=== PATIENT | male | born 1960 | race Caucasian/White ===

== ENCOUNTER 2018-11-04 04:20 | Inpatient (IN) | payer BC ==
[~2018-11-04] VITALS: Ht 172.7 cm; Wt 83.3 kg
[2018-11-04] VITALS (27 sets, daily range): BP systolic 77–151; BP diastolic 47–87
--- NOTE | 2018-11-04 05:33 | Pulmonary Consultation ---
History of Present Illness History of Present Illness Date of Consultation 11/04/18 05:27 Time Seen by Provider: 05:28 Date of Admission History of Present Illness 58yo admitted to from [facility] secondary to worsening dyspnea. He had a recent hospitalization x 3days in [place], [place] 1month ago secondary to acute bronchitis. After discharge his SOB and productive cough has slowly worsened. He was placed on Lasix as an out pt after a echocardiogram which did help some. He was referred to Dr. Colon who did a cardiac cath on him at [place] and 3 stents were placed then a day later 3 more stents placed. After discharge SOB continues to worsen he went back to ED in [place] he was going to transfer to [place] however they were on Diversion so pt was transferred here. He denies any LE swelling. No c/o fever or chills. No c/o n/v/d. Allergies and Home Medications Allergies Coded Allergies: Penicillins (Verified Allergy, Unknown, 11/04/18) Home Medications Aspirin 81 Mg Tablet.dr, 81 MG PO DAILY, (Reported) Atorvastatin Calcium 80 Mg Tablet, 80 MG PO HS, (Reported) Carvedilol 12.5 Mg Tablet, 12.5 MG PO BID, (Reported) Furosemide 40 Mg Tablet, 40 MG PO DAILY, (Reported) Spironolactone 25 Mg Tablet, 25 MG PO DAILY, (Reported) Ticagrelor 90 Mg Tablet, 90 MG PO BID, (Reported) Past Nybjgzh-Soukid-Haubxa Hx Patient Social History Recent Foreign Travel: No Contact w/Someone Who Travel: No Review of Systems Time Seen by Provider: 10:56 Sepsis Event Evaluation Height, Weight, BMI Height: '" Weight: lbs. oz. kg; BMI Method: Exam Exam Vital Signs Date Time Temp Pulse Resp B/P (MAP) Pulse Ox O2 Delivery O2 Flow Rate FiO2 11/04/18 05:15 81 11 90/64 (73) 98 Nasal Cannula 2.00 11/04/18 05:00 78 16 99/76 (84) 98 Nasal Cannula 2.00 11/04/18 04:45 98 16 96/85 (89) 99 Nasal Cannula 2.00 11/04/18 04:30 96 21 101/77 (85) 100 Nasal Cannula 2.00 11/04/18 04:23 99 15 99/76 (84) 100 Nasal Cannula 2.00 11/04/18 04:23 99 Height & Weight Height: '" Weight: lbs. oz. kg; BMI Method: General Appearance: Anxious, Mild Distress HEENT: PERRL/EOMI, Normal ENT Inspection, Pharynx Normal Neck: Full Range of Motion, Non Tender, Supple Respiratory: No Accessory Muscle Use, No Respiratory Distress, Crackles, Decreased Breath Sounds Cardiovascular: Regular Rate, Rhythm, No Edema Capillary Refill: Less Than 3 Seconds Gastrointestinal: normal bowel sounds, non tender, soft Extremity: Normal Capillary Refill, Normal Inspection, No Pedal Edema Neurologic/Psychiatric: Alert, Oriented x3 Skin: Normal Color, Warm/Dry Lymphatic: No Adenopathy Assessment/Plan Assessment/Plan CHFAE -Consult cardiology -Lasix -Plavix -Repeat labs at 11 SOB -Check ABG -Oxygen CAD with recent stent placement at [place] Hypotension -Monitor TONO LOMBARDO DO Nov 04, 2018 05:33
[2018-11-04] MEDS ORDERED: FUROSEMIDE 40 MG/4 ML INJ (LASIX) IVP ONE (06:30)
[2018-11-04] MEDS: MAGNESIUM 1 GM/100 ML IVPB 100 ML IV SCH (06:49)
[2018-11-04] MEDS: KCL 20 MEQ TAB (K-DUR) PO SCH (06:49)
[2018-11-04] MEDS: POTASSIUM CL 10MEQ/50ML IVPB 50 ML IV SCH (06:49)
--- NOTE | 2018-11-04 07:59 | Diagnostic Imaging Report ---
Indication: Shortness of breath. Comparison: None available. Technique: Single radiograph of the chest dated 11/04/2018. Findings: Cardiac silhouette is borderline enlarged. No significant pulmonary vascular congestion. Slight blunting of the left costophrenic angle. The lungs otherwise appear clear of focal pulmonary opacity. No significant pleural effusion on the right. No pneumothorax. Chronic right-sided rib fracture. No acute osseous abnormality. Impression: Blunting of left costophrenic angle felt to relate to trace pleural fluid versus pleural scarring. Borderline cardiomegaly. Dictated by: Dictated on workstation # [id number]
--- NOTE | 2018-11-04 09:08 | History & Physical-Hospitalist ---
History of Present Illness HPI/Chief Complaint Pt is a 58yoCM with a PMH of recently diagnosed CAD s/p 6 stents and CHF. He states that he has not been to a doctor in years until a few weeks ago when he developed SOB. He was diagnosed with "walking pneumonia" and "severe bronchitis" by an MARINE GEAR KEEPER that he was seeing but was referred for an echo as well. The echo revealed an EF of 10-15% and he was then sent to a cotton seed culler. Ultimately he was admitted to [facility] in [place] and underwent cardiac cath x2 on 10/29 and 10/30 with 3 stents placed during both caths. He was discharged from the hospital there on 11/02. He continued to have shortness of breath and returned to an ER in [place], [place] for further evaluation. He was found to have an elevated BNP, oxygen requirement, and mildly elevated troponin. [place] was called for admission but was on diversion. He was thus admitted here for further evaluation and care. This morning he states his only complaint is shortness of breath. He d enies lower extremity edema, chest pain, palpitations. He reports he has been compliant with his fluid and salt restriction as well as his medicines, including DAPT. His is at bedside with his medications and echo report from 10/14. Source: patient, family Date Seen 11/04/18 Time Seen by a Provider: 07:45 Attending Physician Lavell Hernandez MD PCP No,Local Physician Referring Physician Date of Admission Nov 04, 2018 at 04:20 Home Medications & Allergies Home Medications Reviewed patient Home Medication Reconciliation performed by pharmacy medication reconciliations radiation therapy technician and/or nursing. Patients Allergies have been reviewed. 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, partial), Coronary Stent Cardiac: Cardiomyopathy, Coronary Artery Disease, Hypertension History of Blood Disorders: No Adverse Reaction to Blood Montanez: No Family History Reviewed Nursing Family Hx Heart Disease, CAD Under 55 Years Old, CAD Over 55 Years Old, Diabetes, Hypertension, Stroke Review of Systems Constitutional: no symptoms reported EENTM: no symptoms reported Respiratory: No cough; dyspnea on exertion; No hemoptysis; orthopnea; No phlegm; short of breath Cardiovascular: see HPI; No chest pain, No edema; Hx of Intervention; No palpitations; vascular heart diseas Gastrointestinal: No abdominal pain, No constipation; loss of appetite; No nausea, No vomiting Genitourinary: no symptoms reported Musculoskeletal: no symptoms reported Skin: no symptoms reported Psychiatric/Neurological: No Symptoms Reported Physical Exam Physical Exam Vital Signs Vital Signs - First Documented 11/04/18 11/04/18 04:23 07:49 Temp 97.1 Pulse 99 Resp 15 B/P (MAP) 99/76 (84) Pulse Ox 100 O2 Delivery Nasal Cannula O2 Flow Rate 2.00 Capillary Refill : Height, Weight, BMI Height: 5'8.00" Weight: 174lbs. 5.0oz. 79.537951wb; 26.5 BMI Method: General Appearance: No Apparent Distress, WD/WN HEENT: PERRL/EOMI, Moist Mucous Membranes; No Scleral Icterus (L), No Scleral Icterus (R) Respiratory: Lungs Clear, No Accessory Muscle Use, No Respiratory Distress Cardiovascular: No JVD, No Murmur, Tachycardia Gastrointestinal: Normal Bowel Sounds, Non Tender, Soft; No Distended Extremity: Normal Capillary Refill, Normal Inspection, No Calf Tenderness, No Pedal Edema Neurologic/Psychiatric: Alert, Oriented x3, Normal Mood/Affect; No Aphasia, No Facial Droop Skin: Warm/Dry, Ecchymosis (on abdomen) Results Results/Procedures Labs Patient resulted labs reviewed. Imaging: Reviewed Imaging Report Assessment/Plan Admission Diagnosis Acutely decompensated systolic heart failure Admission Status: Inpatient Order (span 2 midnights) Reason for Inpatient Admission: failed outpatient treament, IV lasix, elevated troponin, will likely need more than 2 midnights to stabilize for discharge Diagnosis/Problems Diagnosis/Problems (1) CHF (congestive heart failure) Status: Acute Assessment & Plan: Echo report from shows EF 10-15% Cardiology consulted, appreciate recs Continue IV Lasix Oxygen to keep sats >90 borderline hypotension so will need to adjust hear failure medications accordingly 2g Na restriction 1.5L fluid restriction daily weights, i/os echo ordered for here Qualifiers: Heart failure type: systolic Heart failure chronicity: acute on chronic Qualified Codes: I50.23 - Acute on chronic systolic (congestive) heart failure (2) CAD (coronary artery disease), [place] coronary artery Status: Chronic Assessment & Plan: s/p 6 stents at [place] on 10/29 and 10/30 Records requested Resume Nasima Cardiology consulted, appreciate recs Qualifiers: [place] vs. transplanted heart: [place] heart Associated angina: without angina Qualified Codes: I25.10 - Atherosclerotic heart disease of [place] coronary artery without angina pectoris (3) Transaminitis Assessment & Plan: Likely due to congestion Chronic from outpatient labs Check here Clinical Quality Measures DVT/VTE Risk/Contraindication: Risk Factor Score Per Nursin RFS Level Per Nursing on Admit: 4+=Very High FELIX ESCALERA MD Nov 04, 2018 09:08
--- NOTE | 2018-11-04 09:12 | Consultation-Cardiology ---
HPI-Cardiology Cardiology Consultation: Date of Consultation 11/04/18 Time Seen by a Provider: 08:35 Date of Admission 11-03-18 Attending Physician Lavell Hernandez MD Admitting Physician Ayaka,Local Physician Consulting Physician oDnny Clarke MD HPI: Chief Complaint: Acute on chronic systolic CHF Mr. Blal is a 58 year old male admitted to ICU 1 from [facility] with increasing dyspnea. He states prior to this most recent episode of events he had not seen a physician in 3 years, He reports approx a month ago he was in the hospital in [place], [place] with bronchitis. He states he was feeling better and discharged home after a few days. He then reports he began to feel SOB again and had a frequent lose cough of whitish phlegm. He then went to see his PCP had a CXR and then was referred to Dr. Colon. He had an echocardiogram as an out pt was started on oral Lasix. He began to feel some improvement, but then after a couple of days the SOB became worse again. They called Dr. Colon's office and were directed to the [facility] ED. He states on Wednesday he underwent cardiac cath by Dr. Odonnell and had 3 stents placed. He then went back to the label paster on Wednesday and had 3 more stents placed. They were discharged home on Wednesday. He reports he began to have increasing abdominal distension and worsening SOB. He went to the ED in [place]. [facility] was on diversion and he was sent to [facility]. He denies any c/o CP, palpitations, syncope or near syncope. He reports he continues to feels SOB, but thinks it is getting somewhat better. He denies any LE swelling. No c/o fever or chills. No c/o n/v/d. Review of Systems-Cardiology Review of Systems Constitutional: No chills, No fever; tiredness Eyes: No vision change Ears/Nose/Throat: No epistaxis, No recent hearing loss Respiratory: As described under HPI Cardiovascular: As described under HPI Gastrointestinal: No constipation, No diarrhea, No nausea, No vomiting Genitourinary: No dysuria Musculoskeletal: no symptoms reported Skin: No rash on exposed areas, No ulcerations on exposed areas Psychiatric/Neurological: No seizure, No focal weakness, No syncope Hematologic: No bleeding abnormalities LQA-Bqngdi-Ucpzku Hx Patient Social History Alcohol Use: Denies Use Recreational Drug Use: No Recent Foreign Travel: No Hospitalization with Isolation: Denies Physical Abuse Screen: No Sexual Abuse: No Past Medical History PMH As described under Assessment. Family Medical History Family Medical History: Reports his father had an MD in his late 50's. Reports his mother had DM and a sister. Allergies and Home Medications Allergies Coded Allergies: Penicillins (Verified Allergy, Unknown, 11/04/18) Home Medications Aspirin 81 Mg Tablet.dr, 81 MG PO DAILY, (Reported) Atorvastatin Calcium 80 Mg Tablet, 80 MG PO HS, (Reported) Carvedilol 12.5 Mg Tablet, 12.5 MG PO BID, (Reported) Furosemide 40 Mg Tablet, 40 MG PO DAILY, (Reported) Spironolactone 25 Mg Tablet, 25 MG PO DAILY, (Reported) Ticagrelor 90 Mg Tablet, 90 MG PO BID, (Reported) Physical Exam-Cardiology Physical Exam Vital Signs/I&O 11/06/18 11/07/18 11/07/18 11/07/18 23:59 00:00 01:00 04:00 Temp 99.5 Pulse 138 98 Resp 18 B/P (MAP) 97/69 (78) Pulse Ox 99 99 99 O2 Delivery Nasal Cannula Nasal Cannula Nasal Cannula O2 Flow Rate 2.00 2.00 2.00 11/07/18 11/07/18 04:00 07:00 Temp 98.1 Pulse 83 88 Resp 16 B/P (MAP) 103/64 (77) Pulse Ox 95 O2 Delivery Nasal Cannula O2 Flow Rate 2.00 11/07/18 00:00 Intake Total 650 ml Output Total 600 ml Balance 50 ml Capillary Refill : Constitutional: AAO x 3, well-developed, well-nourished HEENT: PERRL, oral hygience is good Neck: No carotid bruit; carotid pulses are 2 + bilaterally Respiratory: other (diminished ) Cardiovascular: regular rate-rhythm, JVD, S1 and S2, systolic murmur Gastrointestinal: No tender; soft, distended, audible bowel sounds Extremities: no lower extremity edema bilateral Neurologic/Psychiatric: grossly intact, power is 5/5 both on sides Skin: rash (diffuse dark bruising to abdomen; left groin with mild bruising); No rash on exposed areas, No ulcerations on exposed areas Data Review Labs Laboratory Tests 11/07/18 03:16: White Blood Count 13.8H, Red Blood Count 4.89, Hemoglobin 13.9, Hematocrit 42, Mean Corpuscular Volume 86, Mean Corpuscular Hemoglobin 28, Mean Corpuscular Hemoglobin Concent 33, Red Cell Distribution Width 14.5, Platelet Count 184, Mean Platelet Volume 11.8H, Neutrophils (%) (Auto) 77H, Lymphocytes (%) (Auto) 8L, Monocytes (%) (Auto) 15H, Eosinophils (%) (Auto) 0, Basophils (%) (Auto) 0, Neutrophils # (Auto) 10.6H, Lymphocytes # (Auto) 1.1, Monocytes # (Auto) 2.0H, Eosinophils # (Auto) 0.0, Basophils # (Auto) 0.0, Sodium Level 132L, Potassium Level 3.7, Chloride Level 101, Carbon Dioxide Level 20L, Anion Gap 11, Blood Urea Nitrogen 17, Creatinine 0.87, Estimat Glomerular Filtration Rate > 60, BUN/Creatinine Ratio 20, Glucose Level 105, Calcium Level 8.8, Phosphorus Level 3.0, Magnesium Level 1.8 Microbiology 11/04/18 MRSA Screen - Final, Complete MRSA not isolated lab from [facility] reviewed A/P-Cardiology Assessment/Admission Diagnosis Acute on chronic systolic CHF CAD - cardiac cath at [facility] on - per stent cards - s/p Promus premier 2.75 x 16 mm stent to the LAD; Synergy 3.00 x 8 mm stent to circ; Synergy 3.00 x 16 mm stent to the P. circ; Synergy 2.50 x 32 mm stent to RCA, Promus Premier 2.00 x 38 mm stent to RCA and another Promus Premier 3.00 mm x 38 mm stent to the RCA - awaiting cath report for exact details - stenting done by Dr. Odonnell at [facility] ICM - LVEF 10-15% on echo from October 04, 2018 Echocardiogram of October 14, [address] Colon at [facility] showed LVEF 10- 15%. Small-medium pericardial effusion. Mod MR and TR. Trace AI Family h/o CAD - father MD in his late 50's Discussion and Recomendations Acute on chronic systolic CHF - treat with diuretics CAD with recent coronary stenting by Dr. Odonnell at [facility] (4 days ago) - restart ASA and Brilinta ICM - resume coreg - BP somewhat soft - reduce dose Continue statin Monitor lab closely Repeat echocardiogram - -mod pleural effusion seen on echo of 10-14-[address] Colon Monitor lab closely Further recs will be based on his hospital course We would like to thank medical services for this consult Clinical Quality Measures DVT/VTE Risk/Contraindication: Risk Factor Score Per Nursin RFS Level Per Nursing on Admit: 4+=Very High FRANCIS VIEIRA Nov 04, 2018 09:12
[2018-11-04] MEDS: TICAGRELOR 90 MG TABLET (BRILINTA) PO SCH ×2 (09:35→20:42)
[2018-11-04] MEDS ORDERED: ASPIRIN 81 MG CHEW (CHILDREN'S ASA) PO NR (09:45)
[2018-11-04] MEDS ORDERED: FURO40TA4 PO (10:27)
[2018-11-04] MEDS ORDERED: CARV12.53 PO (10:27)
[2018-11-04] MEDS ORDERED: SPIR25TA5 PO (10:27)
[2018-11-04] MEDS ORDERED: TICA90TA PO (10:27)
[2018-11-04] MEDS ORDERED: ASPI-983 PO (10:27)
[2018-11-04] MEDS ORDERED: ATOR80TA64 PO (10:27)
--- NOTE | 2018-11-04 10:28 | NUR ---
SPOKE WITH THE PATIENT AND FAMILY ABOUT MEDICATIONS. HE HAD HIS PRESCRIPTION BOTTLES WITH HIM. THE BOTTLES THEY HAVE ARE FOLLOWS. QUICK MEDS [place]: 11-02-18 FUROSEMIDE 40MG DAILY #30 11-02-18 ATORVASTATIN 80MG HS #30 11-02-18 ASPIRIN 81MG EC DAILY #30 11-02-18 CARVEDILOL 12.5MG BID #60 11-02-18 BRILINTA 90MG BID #60 [facility]: 10-18-18 SPIRONOLACTONE 25MG DAILY #90 ACCORDING TO THE EXT MED HX HE FILLED TESSALON PERLES, ZYRTEC, FLONASE, AND VENTOLIN ON 10-11-18 - HE STATES HE IS NO LONGER TAKING THESE, THEY WERE PRESCRIBED FOR ALLERGY/RESPIRATORY ISSUES THAT THEY THINK IS NO LONGER THE CAUSE OF HIS SYMPTOMS. I DID NOT INCLUDE THEM ON THE MED REC.
[2018-11-04 11:58] LABS: BASOPHILS % (AUTO) 0 % (0-10); EOSINOPHILS # (AUTO) 0.1 10^3/uL (0.0-0.3); EOSINOPHILS % (AUTO) 1 % (0-10); HEMATOCRIT 40 % (40-54); HEMOGLOBIN 13.2 G/DL (13.3-17.7); LYMPHOCYTES # (AUTO) 1.5 X 10^3 (1.0-4.0); LYMPHOCYTES % (AUTO) 18 % (12-44); MEAN CORPUSCULAR HEMOGLOBIN 29 PG (25-34); MEAN CORPUSCULAR HGB CONC 33 G/DL (32-36); MEAN CORPUSCULAR VOLUME 88 FL (80-99); MEAN PLATELET VOLUME 11.4 FL (7.4-10.4); MONOCYTES % (AUTO) 12 % (0-12); NEUTROPHILS # (AUTO) 5.5 X 10^3 (1.8-7.8); NEUTROPHILS % (AUTO) 68 % (42-75); PLATELET COUNT 197 10^3/uL (130-400); RED CELL DISTRIBUTION WIDTH 14.1 % (10.0-14.5); WHITE BLOOD COUNT 8.1 10^3/uL (4.3-11.0)
[2018-11-04 12:09] LABS: INR 1.1 (0.8-1.4); PROTHROMBIN TIME PATIENT 14.1 SEC (12.2-14.7)
--- NOTE | 2018-11-04 12:09 | NUR ---
Initial visit with pt and his . Pt shared that he was at [place] for 6 days, and then came to this hospital from [place] early this morning. Pt said he feels his struggle is just beginning, and he hopes to get some relief and answers for his current illness. He said he is on five medications and wonders if this is diminishing his ability to taste. States that his mouth gets dry and it sometimes makes him feel like gagging. His shared that their grandchildren are a source of support an kindness to them. Pt's is also a primary support. No spiritual affiliation shared at this time.
[2018-11-04 12:18] LABS: ALANINE AMINOTRANSFERASE 106 U/L (0-55); ALBUMIN 3.8 GM/DL (3.2-4.5); ALKALINE PHOSPHATASE 118 U/L (40-136); BILIRUBIN,TOTAL 0.6 MG/DL (0.1-1.0); BUN/CREATININE RATIO 21; CALCIUM 9.1 MG/DL (8.5-10.1); CARBON DIOXIDE 25 MMOL/L (21-32); CHLORIDE 98 MMOL/L (98-107); CREATININE SERUM 1.17 MG/DL (0.60-1.30); GFR ESTIMATED > 60; GLUCOSE 108 MG/DL (70-105); POTASSIUM 3.6 MMOL/L (3.6-5.0); SODIUM 135 MMOL/L (135-145); TOTAL PROTEIN 6.8 GM/DL (6.4-8.2)
--- NOTE | 2018-11-04 15:04 | Consultation-Cardiology ---
HPI-Cardiology Cardiology Consultation: Date of Consultation 11/04/18 Time Seen by a Provider: 09:30 Date of Admission Attending Physician Lavell Hernandez MD Admitting Physician No,Local Physician Consulting Physician WON FRIEDMAN MD, MA, FACP, FACC, FSCAI, CCDS HPI: Chief Complaint: Reason for consultation: Acute on chronic systolic CHF HPI Mr. Ball is a 58 year old male admitted to ICU 1 from [facility] with increasing dyspnea. He states prior to this most recent episode of events he had not seen a physician in 3 years, He reports approx a month ago he was in the hospital in [place], [place] with bronchitis. He states he was feeling better and discharged home after a few days. He then reports he began to feel SOB again and had a frequent lose cough of whitish phlegm. He then went to see his PCP had a CXR and then was referred to Dr. Colon. He had an echocardiogram as an out pt was started on oral Lasix. He began to feel some improvement, but then after a couple of days the SOB became worse again. They called Dr. Colon's office and were directed to the [place] ED. He states on Wednesday he underwent cardiac cath by Dr. Odonnell and had 3 stents placed. He then went back to the [facility] on Wednesday and had 3 more stents placed. They were discharged home on Wednesday. He reports he began to have increasing abdominal distension and worsening SOB. He went to the ED in [place]. [facility] was on diversion and he was sent to [facility]. He denies any c/o CP, palpitations, syncope or near syncope. He reports he continues to feels SOB, but thinks it is getting somewhat better. He denies any LE swelling. No c/o fever or chills. No c/o n/v/d. Review of Systems-Cardiology Review of Systems Constitutional: No chills, No fever; tiredness Eyes: No vision change Ears/Nose/Throat: No epistaxis, No recent hearing loss Respiratory: As described under HPI Cardiovascular: As described under HPI Gastrointestinal: No constipation, No diarrhea, No nausea, No vomiting Genitourinary: No dysuria Musculoskeletal: no symptoms reported Skin: No rash on exposed areas, No ulcerations on exposed areas Psychiatric/Neurological: No seizure, No focal weakness, No syncope Hematologic: No bleeding abnormalities TKT-Poryig-Jrfjch Hx Patient Social History Marrital Status: Employed/Student: employed Alcohol Use: Denies Use Recreational Drug Use: No Smoking Status: Former Smoker Recent Foreign Travel: No Hospitalization with Isolation: Denies Physical Abuse Screen: No Sexual Abuse: No Past Medical History PMH As described under Assessment. Family Medical History Family Medical History: Reports his father had an [place] in his late 50's. Reports his mother had DM and a sister. Allergies and Home Medications Allergies Coded Allergies: Penicillins (Verified Allergy, Unknown, 11/04/18) Home Medications Aspirin 81 Mg Tablet.dr, 81 MG PO DAILY, (Reported) Atorvastatin Calcium 80 Mg Tablet, 80 MG PO HS, (Reported) Carvedilol 12.5 Mg Tablet, 12.5 MG PO BID, (Reported) Furosemide 40 Mg Tablet, 40 MG PO DAILY, (Reported) Spironolactone 25 Mg Tablet, 25 MG PO DAILY, (Reported) Ticagrelor 90 Mg Tablet, 90 MG PO BID, (Reported) Patient Home Medication List Home Medication List Reviewed: Yes Physical Exam-Cardiology Physical Exam Vital Signs/I&O 11/04/18 11/04/18 11/04/18 11/04/18 04:23 04:23 04:30 04:45 Pulse 99 99 96 98 Resp 15 21 16 B/P (MAP) 99/76 (84) 101/77 (85) 96/85 (89) Pulse Ox 100 100 99 O2 Delivery Nasal Cannula Nasal Cannula Nasal Cannula O2 Flow Rate 2.00 2.00 2.00 11/04/18 11/04/18 11/04/18 11/04/18 05:00 05:15 05:30 05:45 Pulse 78 81 79 93 Resp 16 11 12 13 B/P (MAP) 99/76 (84) 90/64 (73) 89/66 (74) 100/55 (70) Pulse Ox 98 98 99 99 O2 Delivery Nasal Cannula Nasal Cannula Nasal Cannula Nasal Cannula O2 Flow Rate 2.00 2.00 2.00 2.00 11/04/18 11/04/18 11/04/18 11/04/18 06:00 06:15 06:30 06:45 Pulse 87 85 81 90 Resp 14 22 13 22 B/P (MAP) 95/73 (80) 93/74 (80) 90/71 (77) 86/75 (79) Pulse Ox 100 98 98 99 O2 Delivery Nasal Cannula Nasal Cannula Nasal Cannula Nasal Cannula O2 Flow Rate 2.00 2.00 2.00 2.00 11/04/18 11/04/18 11/04/18 11/04/18 06:54 07:00 07:00 07:49 Temp 97.1 Pulse 89 92 Resp 20 B/P (MAP) 94/76 (82) Pulse Ox 100 O2 Delivery Nasal Cannula Nasal Cannula O2 Flow Rate 2.00 2.00 11/04/18 11/04/18 11/04/18 11/04/18 08:00 08:00 09:00 10:00 Pulse 113 125 92 Resp 12 16 B/P (MAP) 106/75 (85) 108/87 (94) 88/58 (68) Pulse Ox 99 99 98 O2 Delivery Nasal Cannula Nasal Cannula Nasal Cannula Nasal Cannula O2 Flow Rate 2.00 2.00 2.00 2.00 11/04/18 11/04/18 11/04/18 11/04/18 11:00 11:30 12:00 12:00 Temp 97.2 Pulse 123 89 Resp B/P (MAP) () Pulse Ox 98 98 O2 Delivery Nasal Cannula Nasal Cannula Nasal Cannula O2 Flow Rate 2.00 2.00 2.00 11/04/18 11/04/18 11/04/18 12:40 13:00 14:00 Pulse 113 82 85 Resp 14 1 B/P (MAP) 88/61 (70) 96/76 (83) Pulse Ox 98 99 O2 Delivery Nasal Cannula Nasal Cannula O2 Flow Rate 2.00 2.00 Capillary Refill : Constitutional: AAO x 3, well-developed, well-nourished HEENT: PERRL, oral hygience is good Neck: No carotid bruit; carotid pulses are 2 + bilaterally Respiratory: other (diminished ) Cardiovascular: regular rate-rhythm, JVD, S1 and S2, systolic murmur (2/6 HSM at card apex) Gastrointestinal: No tender; soft, distended, audible bowel sounds Extremities: no lower extremity edema bilateral Neurologic/Psychiatric: grossly intact, power is 5/5 both on sides Skin: rash (diffuse dark bruising to abdomen; left groin with mild bruising); No rash on exposed areas, No ulcerations on exposed areas Data Review Labs Laboratory Tests 11/04/18 11:55: White Blood Count 8.1, Red Blood Count 4.58, Hemoglobin 13.2L, Hematocrit 40, Mean Corpuscular Volume 88, Mean Corpuscular Hemoglobin 29, Mean Corpuscular Hemoglobin Concent 33, Red Cell Distribution Width 14.1, Platelet Count 197, Mean Platelet Volume 11.4H, Neutrophils (%) (Auto) 68, Lymphocytes (%) (Auto) 18, Monocytes (%) (Auto) 12, Eosinophils (%) (Auto) 1, Basophils (%) (Auto) 0, Neutrophils # (Auto) 5.5, Lymphocytes # (Auto) 1.5, Monocytes # (Auto) 1.0, Eosinophils # (Auto) 0.1, Basophils # (Auto) 0.0, Prothrombin Time 14.1, INR Comment 1.1, Sodium Level 135, Potassium Level 3.6, Chloride Level 98, Carbon Dioxide Level 25, Anion Gap 12, Blood Urea Nitrogen 24H, Creatinine 1.17, Estimat Glomerular Filtration Rate > 60, BUN/Creatinine Ratio 21, Glucose Level 108H, Calcium Level 9.1, Corrected Calcium 9.3, Total Bilirubin 0.6, Aspartate Amino Transf (AST/SGOT) 47H, Alanine Aminotransferase (ALT/SGPT) 106H, Alkaline Phosphatase 118, Troponin I 0.252H, Total Protein 6.8, Albumin 3.8 Laboratory Tests 11/04/18 11:55 A/P-Cardiology Assessment/Admission Diagnosis Acute on chronic systolic CHF CAD - cardiac cath at [facility] on - per stent cards - s/p Promus premier 2.75 x 16 mm stent to the LAD; Synergy 3.00 x 8 mm stent to circ; Synergy 3.00 x 16 mm stent to the P. circ; Synergy 2.50 x 32 mm stent to RCA, Promus Premier 2.00 x 38 mm stent to RCA and another Promus Premier 3.00 mm x 38 mm stent to the RCA - awaiting cath report for exact details - stenting done by Dr. Odonnell at [facility] ICM - LVEF 10-15% on echo of October 04, 2018 Echo of 11/04/18: LVEF 10%, no significant pericard eff, mod cardiomegaly, mod to sev MR, mod TR, RVSP 25 mmHg Frequent PVCs, isolated and coupled Family h/o CAD - father [place] in his late 50's Discussion and Recomendations * Complex management * I had a long and detailed discussion with him and his and son * BB and BELINDA-inhib for cm, as tolerated by bp * DAPT for cor stents * Furosemide and spironolactone for ac sys CHF * Statin therapy because of CAD * Amiodarone because of frequent vent ectopy in the setting of dilated cm with CHF * Monitor labs * Consider Life Vest prior to d/c Clinical Quality Measures DVT/VTE Risk/Contraindication: Risk Factor Score Per Nursin RFS Level Per Nursing on Admit: 4+=Very High WON FRIEDMAN MD FACP FAC CCDS Nov 04, 2018 15:04
[2018-11-04] MEDS ORDERED: AMIODARONE 200 MG (CORDARONE) TAB PO NR (15:45)
[2018-11-04] MEDS: CARVEDILOL 3.125 MG (COREG) TABLET PO SCH (20:42)
[2018-11-04] MEDS: ATORVASTATIN 80 MG (LIPITOR) TABLET PO SCH (20:42)
[2018-11-04] MEDS ORDERED: NON-FORMULARY MEDICATION 1 EA EA (Atorvastatin Calcium (Lipitor) 80 MG) PO SCH (21:00)
[2018-11-05] VITALS (23 sets, daily range): BP systolic 82–105; BP diastolic 59–83
[2018-11-05 03:20] LABS: BASOPHILS % (AUTO) 0 % (0-10); EOSINOPHILS # (AUTO) 0.1 10^3/uL (0.0-0.3); EOSINOPHILS % (AUTO) 1 % (0-10); HEMATOCRIT 40 % (40-54); HEMOGLOBIN 13.1 G/DL (13.3-17.7); LYMPHOCYTES # (AUTO) 1.6 X 10^3 (1.0-4.0); LYMPHOCYTES % (AUTO) 17 % (12-44); MEAN CORPUSCULAR HEMOGLOBIN 29 PG (25-34); MEAN CORPUSCULAR HGB CONC 33 G/DL (32-36); MEAN CORPUSCULAR VOLUME 87 FL (80-99); MEAN PLATELET VOLUME 11.9 FL (7.4-10.4); MONOCYTES # (AUTO) 1.1 X 10^3 (0.0-1.0); MONOCYTES % (AUTO) 11 % (0-12); NEUTROPHILS # (AUTO) 6.8 X 10^3 (1.8-7.8); NEUTROPHILS % (AUTO) 71 % (42-75); PLATELET COUNT 196 10^3/uL (130-400); RED CELL DISTRIBUTION WIDTH 14.4 % (10.0-14.5); WHITE BLOOD COUNT 9.6 10^3/uL (4.3-11.0)
[2018-11-05 03:38] LABS: BUN/CREATININE RATIO 21; CALCIUM 9.3 MG/DL (8.5-10.1); CARBON DIOXIDE 21 MMOL/L (21-32); CHLORIDE 99 MMOL/L (98-107); CREATININE SERUM 1.14 MG/DL (0.60-1.30); GFR ESTIMATED > 60; GLUCOSE 113 MG/DL (70-105); PHOSPHORUS 3.6 MG/DL (2.3-4.7); POTASSIUM 3.9 MMOL/L (3.6-5.0); SODIUM 134 MMOL/L (135-145)
[2018-11-05] MEDS: MAGNESIUM 1 GM/100 ML IVPB 100 ML IV SCH (05:41)
[2018-11-05] MEDS: KCL 20 MEQ TAB (K-DUR) PO SCH (05:41)
[2018-11-05] MEDS: POTASSIUM CL 10MEQ/50ML IVPB 50 ML IV SCH (05:41)
--- NOTE | 2018-11-05 08:46 | Diagnostic Imaging Report ---
Portable erect AP chest at 325 hours. INDICATION: Congestive failure. FINDINGS: The borderline cardiomegaly noted on the prior exam of 11/04/2018 is again evident and no different. The previous study did show blunting of the left costophrenic angle that finding is also again visualized and unchanged. The lungs are generally clear. There is a vague area of slight increased density in the right lung base, however. This could be secondary to early/mild pneumonia. Clinical followup is recommended. The mediastinum is not widened. The osseous structures are intact. IMPRESSION: There is a question of mild pneumonia/atelectasis developing in the right lung base. Clinical followup is recommended. The overall appearance of the chest is otherwise stable. Dictated by: Dictated on workstation # [id number]
[2018-11-05] MEDS: TICAGRELOR 90 MG TABLET (BRILINTA) PO SCH ×2 (08:55→20:50)
[2018-11-05] MEDS: AMIODARONE 200 MG (CORDARONE) TAB PO SCH (08:55)
[2018-11-05] MEDS: FUROSEMIDE 40 MG/4 ML INJ (LASIX) IVP SCH (08:55)
[2018-11-05] MEDS: CARVEDILOL 3.125 MG (COREG) TABLET PO SCH ×2 (08:56→20:50)
[2018-11-05] MEDS: ASPIRIN 81 MG CHEW (CHILDREN'S ASA) PO SCH (08:56)
[2018-11-05] MEDS: SPIRONOLACTONE 25 MG (ALDACTONE) TAB PO SCH (08:56)
[2018-11-05] MEDS ORDERED: lisINopril 5 MG (PRINIVIL) TABLET PO SCH (09:00)
--- NOTE | 2018-11-05 09:33 | Progress Note-Hospitalist ---
Subjective HPI/CC On Admission Date Seen by Provider: Nov 05, 2018 Time Seen by Provider: 09:10 Pt is a 58yoCM with a PMH of recently diagnosed CAD s/p 6 stents and CHF. He states that he has not been to a doctor in years until a few weeks ago when he developed SOB. He was diagnosed with "walking pneumonia" and "severe bronchitis" by an [employer] that he was seeing but was referred for an echo as well. The echo revealed an EF of 10-15% and he was then sent to a spice mixer. Ultimately he was admitted to [facility] in [place] and underwent cardiac cath x2 on 10/29 and 10/30 with 3 stents placed during both caths. He was discharged from the hospital there on 11/02. He continued to have shortness of breath and returned to an ER in [place], [place] for further evaluation. He was found to have an elevated BNP, oxygen requirement, and mildly elevated troponin. [facility] was called for admission but was on diversion. He was thus admitted here for further evaluation and care. This morning he states his only complaint is shortness of breath. He denies lower extremity edema, chest pain, palpitations. He reports he has been compliant with his fluid and salt restriction as well as his medicines, including DAPT. His is at bedside with his medications and echo report from 10/14. Subjective/Events-last exam Pt reports feeling better but still having episodes of SOB with laying down. No other complaints. Denies CP or palpiations. Objective Exam Vital Signs Vital Signs Date Time Temp Pulse Resp B/P (MAP) Pulse Ox O2 Delivery O2 Flow Rate FiO2 11/05/18 09:00 92 17 98/75 (83) 99 Nasal Cannula 2.00 11/05/18 08:00 98.2 Capillary Refill : General Appearance: No Apparent Distress, WD/WN HEENT: No Scleral Icterus (L), No Scleral Icterus (R) Respiratory: No Accessory Muscle Use, No Respiratory Distress, Decreased Breath Sounds Cardiovascular: Regular Rate, Rhythm, No JVD, No Murmur Gastrointestinal: Normal Bowel Sounds, Non Tender, Soft; No Distended, No Guarding, No Rebound Neurologic/Psychiatric: Alert, Oriented x3, Normal Mood/Affect Skin: Ecchymosis (on abdomen) Results/Procedures Lab Laboratory Tests 11/04/18 11:55 11/05/18 02:55 Patient resulted labs reviewed. Imaging: Reviewed Imaging Report Assessment/Plan Assessment and Plan Assess & Plan/Chief Complaint Acutely decompensated heart failure Diagnosis/Problems Diagnosis/Problems (1) CHF (congestive heart failure) Status: Acute Assessment & Plan: Ischemic cardiomyopathy Echo shows EF 10% with global hypokinesis, mod/theron mitral regurg, mod tricuspid regurg and resolved pericardial effusion Cardiology consulted, appreciate recs Consider LifeVest prior to DC Continue IV Lasix Oxygen to keep sats >90 borderline hypotension so will need to adjust heart failure medications accordingly 2g Na restriction 1.5L fluid restriction daily weights, i/os only 500ml negative yesterday but down 2lbs in weight Discussed with Dr Clarke and will keep in ICU at least overnight and reassess in AM will attempt to get patient Entresto if not cost prohibitive Qualifiers: Heart failure type: systolic Heart failure chronicity: acute on chronic Qualified Codes: I50.23 - Acute on chronic systolic (congestive) heart failure (2) CAD (coronary artery disease), [place] coronary artery Status: Chronic Assessment & Plan: s/p 6 stents at [facility] on 10/29 and 10/30 Resume Brilinta, ASA, Statin Cardiology consulted, appreciate recs Qualifiers: [place] vs. transplanted heart: [place] heart Associated angina: without angina Qualified Codes: I25.10 - Atherosclerotic heart disease of [place] coronary artery without angina pectoris (3) Transaminitis Assessment & Plan: Likely due to congestion Chronic from outpatient labs Check here Clinical Quality Measures DVT/VTE Risk/Contraindication: Risk Factor Score Per Nursin RFS Level Per Nursing on Admit: 4+=Very High FELIX ESCALERA MD Nov 05, 2018 09:32
--- NOTE | 2018-11-05 09:57 | Progress Note-Cardiology ---
Cardiology SOAP Progress Note Subjective: Modest improvement of shortness of breath No syncope No cp Occ palpitation Objective: I&O/Vital Signs 11/04/18 11/04/18 11/05/18 11/05/18 22:00 23:00 00:00 00:00 Temp 98.8 Pulse 110 84 89 Resp 26 35 24 B/P (MAP) 96/72 (80) 77/60 (66) 85/72 (76) Pulse Ox 92 97 92 92 O2 Delivery Nasal Cannula Nasal Cannula Nasal Cannula Nasal Cannula O2 Flow Rate 2.00 2.00 2.00 2.00 11/05/18 11/05/18 11/05/18 11/05/18 01:00 01:00 02:00 03:00 Pulse 84 81 82 87 Resp 15 12 7 B/P (MAP) 89/74 (79) 92/71 (78) 95/74 (81) Pulse Ox 97 96 99 O2 Delivery Nasal Cannula Nasal Cannula Nasal Cannula O2 Flow Rate 2.00 2.00 2.00 11/05/18 11/05/18 11/05/18 11/05/18 03:55 04:00 05:00 06:00 Temp 98.4 Pulse 88 81 Resp 21 B/P (MAP) 100/76 (84) 104/83 (90) 105/79 (88) Pulse Ox 95 99 96 98 O2 Delivery Nasal Cannula Nasal Cannula Nasal Cannula Nasal Cannula O2 Flow Rate 2.00 2.00 2.00 2.00 11/05/18 11/05/18 11/05/18 11/05/18 07:00 07:00 08:00 08:00 Temp 98.2 Pulse 89 89 96 Resp 18 B/P (MAP) 92/74 (80) 100/61 (74) Pulse Ox 98 99 O2 Delivery Nasal Cannula Nasal Cannula Nasal Cannula O2 Flow Rate 2.00 2.00 2.00 11/05/18 09:00 Pulse 92 Resp 17 B/P (MAP) 98/75 (83) Pulse Ox 99 O2 Delivery Nasal Cannula O2 Flow Rate 2.00 11/05/18 00:00 Intake Total 800 ml Output Total 500 ml Balance 300 ml Weight (Pounds): 172 Weight (Ounces): 2.0 Weight (Calculated Kilograms): 78.708090 Constitutional: AAO x 3, well-developed, well-nourished Respiratory: other (diminished ) Cardiovascular: regular rate-rhythm, JVD, S1 and S2, systolic murmur (2/6 HSM at card apex) Gastrointestional: No tender; soft, distended, audible bowel sounds Extremities: no lower extremity edema bilateral Neurologic/Psychiatric: grossly intact, power is 5/5 both on sides Skin: rash (diffuse dark bruising to abdomen; left groin with mild bruising); No rash on exposed areas, No ulcerations on exposed areas Results/Procedures: Labs Laboratory Tests 11/04/18 11:55: White Blood Count 8.1, Red Blood Count 4.58, Hemoglobin 13.2L, Hematocrit 40, Mean Corpuscular Volume 88, Mean Corpuscular Hemoglobin 29, Mean Corpuscular Hemoglobin Concent 33, Red Cell Distribution Width 14.1, Platelet Count 197, Mean Platelet Volume 11.4H, Neutrophils (%) (Auto) 68, Lymphocytes (%) (Auto) 18, Monocytes (%) (Auto) 12, Eosinophils (%) (Auto) 1, Basophils (%) (Auto) 0, Neutrophils # (Auto) 5.5, Lymphocytes # (Auto) 1.5, Monocytes # (Auto) 1.0, Eosinophils # (Auto) 0.1, Basophils # (Auto) 0.0, Prothrombin Time 14.1, INR Comment 1.1, Sodium Level 135, Potassium Level 3.6, Chloride Level 98, Carbon Dioxide Level 25, Anion Gap 12, Blood Urea Nitrogen 24H, Creatinine 1.17, Estimat Glomerular Filtration Rate > 60, BUN/Creatinine Ratio 21, Glucose Level 108H, Calcium Level 9.1, Corrected Calcium 9.3, Total Bilirubin 0.6, Aspartate Amino Transf (AST/SGOT) 47H, Alanine Aminotransferase (ALT/SGPT) 106H, Alkaline Phosphatase 118, Troponin I 0.252H, Total Protein 6.8, Albumin 3.8 11/05/18 02:55: White Blood Count 9.6, Red Blood Count 4.59, Hemoglobin 13.1L, Hematocrit 40, Mean Corpuscular Volume 87, Mean Corpuscular Hemoglobin 29, Mean Corpuscular Hemoglobin Concent 33, Red Cell Distribution Width 14.4, Platelet Count 196, Mean Platelet Volume 11.9H, Neutrophils (%) (Auto) 71, Lymphocytes (%) (Auto) 17, Monocytes (%) (Auto) 11, Eosinophils (%) (Auto) 1, Basophils (%) (Auto) 0, Neutrophils # (Auto) 6.8, Lymphocytes # (Auto) 1.6, Monocytes # (Auto) 1.1H, Eosinophils # (Auto) 0.1, Basophils # (Auto) 0.0, Sodium Level 134L, Potassium Level 3.9, Chloride Level 99, Carbon Dioxide Level 21, Anion Gap 14, Blood Urea Nitrogen 24H, Creatinine 1.14, Estimat Glomerular Filtration Rate > 60, BUN/Creatinine Ratio 21, Glucose Level 113H, Calcium Level 9.3, Phosphorus Level 3.6, Magnesium Level 2.0 Laboratory Tests 11/04/18 11:55 11/05/18 02:55 A/P: Assessment: Acute on chronic systolic CHF CAD - cardiac cath at [facility] on - per stent cards - s/p Promus premier 2.75 x 16 mm stent to the LAD; Synergy 3.00 x 8 mm stent to circ; Synergy 3.00 x 16 mm stent to the P. circ; Synergy 2.50 x 32 mm stent to RCA, Promus Premier 2.00 x 38 mm stent to RCA and another Promus Premier 3.00 mm x 38 mm stent to the RCA - awaiting cath report for exact details - stenting done by Dr. Odonnell at [facility] ICM - LVEF 10-15% on echo of October 04, 2018. Echo of 11/04/18: LVEF 10%, no sign ificant pericard eff, mod cardiomegaly, mod to sev MR, mod TR, RVSP 25 mmHg Frequent PVCs, isolated and coupled Family h/o CAD - father [place] in his late 50's Plan: * Complex management * I again discussed his CV issues with him and his * Continue current regimen: BB and BELINDA-inhib for cm, as tolerated by bp, DAPT for cor stents, furosemide and spironolactone for ac sys CHF, statin therapy because of CAD, amiodarone because of frequent vent ectopy in the setting of dilated cm with CHF * Monitor labs * Life Vest prior to d/c * Increase ambulation WON FRIEDMAN MD [facility] Nov 05, 2018 09:57
--- NOTE | 2018-11-05 11:00 | Pulmonary Progress Note ---
Subjective Time Seen by a Provider: 04:59 Subjective/Events-last exam No complications noted. Sepsis Event Evaluation Height, Weight, BMI Height: 5'8.00" Weight: 172lbs. 2.0oz. 78.964394it; 26.5 BMI Method: Exam Exam Vital Signs Date Time Temp Pulse Resp B/P (MAP) Pulse Ox O2 Delivery O2 Flow Rate FiO2 11/05/18 10:00 112 14 99 Nasal Cannula 2.00 11/05/18 09:00 92 17 98/75 (83) 99 Nasal Cannula 2.00 11/05/18 08:00 Nasal Cannula 2.00 11/05/18 08:00 98.2 96 18 100/61 (74) 99 Nasal Cannula 2.00 11/05/18 07:00 89 11/05/18 07:00 89 92/74 (80) 98 Nasal Cannula 2.00 11/05/18 06:00 81 105/79 (88) 98 Nasal Cannula 2.00 11/05/18 05:00 104/83 (90) 96 Nasal Cannula 2.00 11/05/18 04:00 98.4 88 21 100/76 (84) 99 Nasal Cannula 2.00 11/05/18 03:55 95 Nasal Cannula 2.00 11/05/18 03:00 87 7 95/74 (81) 99 Nasal Cannula 2.00 11/05/18 02:00 82 12 92/71 (78) 96 Nasal Cannula 2.00 11/05/18 01:00 81 15 89/74 (79) 97 Nasal Cannula 2.00 11/05/18 01:00 84 11/05/18 00:00 92 Nasal Cannula 2.00 11/05/18 00:00 98.8 89 24 85/72 (76) 92 Nasal Cannula 2.00 11/04/18 23:00 84 35 77/60 (66) 97 Nasal Cannula 2.00 11/04/18 22:00 110 26 96/72 (80) 92 Nasal Cannula 2.00 11/04/18 21:00 114 20 94/72 (79) 98 Nasal Cannula 2.00 11/04/18 20:00 113 36 97/69 (78) 98 Nasal Cannula 2.00 11/04/18 19:50 97.9 11/04/18 19:20 98 Nasal Cannula 2.00 11/04/18 19:00 102 36 78/65 (69) 98 Nasal Cannula 2.00 11/04/18 19:00 101 11/04/18 18:00 79 79/48 (58) 98 Nasal Cannula 2.00 11/04/18 17:00 105 20 88/47 (61) 98 Nasal Cannula 2.00 11/04/18 16:00 Nasal Cannula 2.00 11/04/18 16:00 88 7 86/62 (70) 97 Nasal Cannula 2.00 11/04/18 15:30 96.4 11/04/18 15:00 84 18 85/65 (72) 99 Nasal Cannula 2.00 11/04/18 14:00 85 1 96/76 (83) 99 Nasal Cannula 2.00 11/04/18 13:00 82 14 88/61 (70) 98 Nasal Cannula 2.00 11/04/18 12:40 113 11/04/18 12:00 Nasal Cannula 2.00 11/04/18 12:00 89 () 98 Nasal Cannula 2.00 11/04/18 11:30 97.2 11/04/18 11:00 123 98 Nasal Cannula 2.00 I & O 11/05/18 07:00 Intake Total 1450 ml Output Total 2350 ml Balance -900 ml Height & Weight Height: 5'8.00" Weight: 172lbs. 2.0oz. 78.103428tm; 26.5 BMI Method: General Appearance: No Apparent Distress, Anxious HEENT: PERRL/EOMI, Normal ENT Inspection, Pharynx Normal Neck: Full Range of Motion, Non Tender, Supple Respiratory: No Accessory Muscle Use, No Respiratory Distress, Crackles, Decreased Breath Sounds Cardiovascular: Regular Rate, Rhythm, No Edema Capillary Refill: Less Than 3 Seconds Gastrointestinal: normal bowel sounds, non tender, soft Extremity: Normal Capillary Refill, Normal Inspection, No Pedal Edema Neurologic/Psychiatric: Alert, Oriented x3 Skin: Normal Color, Warm/Dry Lymphatic: No Adenopathy Results Lab Laboratory Tests 11/04/18 11:55 11/05/18 02:55 Assessment/Plan Assessment/Plan CHFAE EF 10% -Consult cardiology -Lasix -Plavix -Repeat labs at 11 SOB with atelectasis vs pulmonary edema right lung base -- no leukocytosis, No fever - doubt PNA -Oxygen and monitor -IS CAD [facility]ONO LOMBARDO DO Nov 05, 2018 11:00
[2018-11-05] MEDS: ENOXAPARIN 30 MG/0.3 ML (LOVENOX) SYR SC SCH (12:10)
[2018-11-05] MEDS: SACUBITRIL/VALSARTAN 24/26 MG (ENTRESTO) TABLET PO SCH (20:50)
[2018-11-05] MEDS: ATORVASTATIN 80 MG (LIPITOR) TABLET PO SCH (20:50)
[2018-11-06] VITALS (15 sets, daily range): BP systolic 79–100; BP diastolic 50–76
[2018-11-06 03:23] LABS: BASOPHILS % (AUTO) 0 % (0-10); EOSINOPHILS # (AUTO) 0.1 10^3/uL (0.0-0.3); EOSINOPHILS % (AUTO) 1 % (0-10); HEMATOCRIT 40 % (40-54); HEMOGLOBIN 13.2 G/DL (13.3-17.7); LYMPHOCYTES # (AUTO) 1.2 X 10^3 (1.0-4.0); LYMPHOCYTES % (AUTO) 10 % (12-44); MEAN CORPUSCULAR HEMOGLOBIN 29 PG (25-34); MEAN CORPUSCULAR HGB CONC 33 G/DL (32-36); MEAN CORPUSCULAR VOLUME 88 FL (80-99); MONOCYTES # (AUTO) 1.5 X 10^3 (0.0-1.0); MONOCYTES % (AUTO) 12 % (0-12); NEUTROPHILS # (AUTO) 9.3 X 10^3 (1.8-7.8); NEUTROPHILS % (AUTO) 77 % (42-75); PLATELET COUNT 175 10^3/uL (130-400); RED CELL DISTRIBUTION WIDTH 14.1 % (10.0-14.5); WHITE BLOOD COUNT 12.1 10^3/uL (4.3-11.0)
[2018-11-06 03:42] LABS: BUN/CREATININE RATIO 19; CALCIUM 8.9 MG/DL (8.5-10.1); CARBON DIOXIDE 24 MMOL/L (21-32); CHLORIDE 98 MMOL/L (98-107); CREATININE SERUM 1.11 MG/DL (0.60-1.30); GFR ESTIMATED > 60; GLUCOSE 96 MG/DL (70-105); MAGNESIUM 1.9 MG/DL (1.8-2.4); PHOSPHORUS 3.4 MG/DL (2.3-4.7); POTASSIUM 3.5 MMOL/L (3.6-5.0); SODIUM 135 MMOL/L (135-145)
--- NOTE | 2018-11-06 05:00 | Pulmonary Progress Note ---
Subjective Time Seen by a Provider: 05:35 Subjective/Events-last exam Pt is coughing up sputum. Sepsis Event Evaluation Height, Weight, BMI Height: 5'8.00" Weight: 172lbs. 2.0oz. 78.547718cc; 26.5 BMI Method: Exam Exam Vital Signs Date Time Temp Pulse Resp B/P (MAP) Pulse Ox O2 Delivery O2 Flow Rate FiO2 11/06/18 04:00 79 14 81/60 (67) 96 Nasal Cannula 2.00 11/06/18 03:50 95 Nasal Cannula 2.00 11/06/18 03:00 86 14 89/62 (71) 95 Nasal Cannula 2.00 11/06/18 02:00 72 18 90/68 (75) 98 Nasal Cannula 2.00 11/06/18 01:00 78 11/06/18 01:00 75 15 89/59 (69) 97 Nasal Cannula 2.00 11/06/18 00:05 94 Nasal Cannula 2.00 11/06/18 00:00 75 20 93/66 (75) 95 Nasal Cannula 2.00 11/06/18 00:00 98.7 11/05/18 23:00 71 15 85/63 (70) 97 Nasal Cannula 2.00 11/05/18 22:00 72 15 93/68 (76) 99 Nasal Cannula 2.00 11/05/18 21:00 85 21 82/71 (75) 99 Nasal Cannula 2.00 11/05/18 20:00 104 18 100/65 (77) 97 Nasal Cannula 2.00 11/05/18 20:00 95 Nasal Cannula 2.00 11/05/18 19:30 97.6 11/05/18 19:00 112 11/05/18 19:00 112 19 88/69 (75) 99 Nasal Cannula 2.00 11/05/18 18:00 107 21 98/73 (81) 99 Nasal Cannula 2.00 11/05/18 17:00 81 16 94/74 (81) 97 Nasal Cannula 2.00 11/05/18 16:14 Nasal Cannula 2.00 11/05/18 16:00 Nasal Cannula 2.00 11/05/18 16:00 96.8 11/05/18 16:00 83 25 87/68 (74) 100 Nasal Cannula 2.00 11/05/18 15:00 84 86/59 (68) 98 Nasal Cannula 2.00 11/05/18 14:00 82 98/79 (85) 99 Nasal Cannula 2.00 11/05/18 13:00 69 90/74 (79) 94 Nasal Cannula 2.00 11/05/18 13:00 82 11/05/18 12:00 Nasal Cannula 2.00 11/05/18 12:00 81 93/66 (75) 97 Nasal Cannula 2.00 11/05/18 11:30 97.6 11/05/18 11:00 85 30 103/83 (90) 98 Nasal Cannula 2.00 11/05/18 10:00 112 14 99 Nasal Cannula 2.00 11/05/18 09:00 92 17 98/75 (83) 99 Nasal Cannula 2.00 11/05/18 08:00 Nasal Cannula 2.00 11/05/18 08:00 98.2 96 18 100/61 (74) 99 Nasal Cannula 2.00 11/05/18 07:00 89 11/05/18 07:00 89 92/74 (80) 98 Nasal Cannula 2.00 11/05/18 06:00 81 105/79 (88) 98 Nasal Cannula 2.00 I & O 11/06/18 07:00 Intake Total 1000 ml Output Total 1175 ml Balance -175 ml Height & Weight Height: 5'8.00" Weight: 172lbs. 2.0oz. 78.148758rl; 26.5 BMI Method: General Appearance: No Apparent Distress, Anxious HEENT: PERRL/EOMI, Normal ENT Inspection, Pharynx Normal Neck: Full Range of Motion, Non Tender, Supple Respiratory: No Accessory Muscle Use, No Respiratory Distress, Crackles, Decreased Breath Sounds Cardiovascular: Regular Rate, Rhythm, No Edema Capillary Refill: Less Than 3 Seconds Gastrointestinal: normal bowel sounds, non tender, soft Extremity: Normal Capillary Refill, Normal Inspection, No Pedal Edema Neurologic/Psychiatric: Alert, Oriented x3 Skin: Normal Color, Warm/Dry Lymphatic: No Adenopathy Results Lab Laboratory Tests 11/04/18 11:55 11/05/18 02:55 11/06/18 03:03 Assessment/Plan Assessment/Plan CHFAE EF 10% -Consult cardiology -Lasix -Plavix -Repeat labs at 11 Pneumonia - new onset leukocytosis with this AM Labs, No fever -Check sputum C&S -Start Omnicef x 7days -Oxygen and monitor -IS CAD with recent 6 stents placement at [place] -Cardiology following TONO LOMBARDO DO Nov 06, 2018 05:00
[2018-11-06] MEDS: POTASSIUM CL 10MEQ/50ML IVPB 50 ML IV SCH (05:07)
[2018-11-06] MEDS: MAGNESIUM 1 GM/100 ML IVPB 100 ML IV SCH (05:08)
[2018-11-06] MEDS: KCL 20 MEQ TAB (K-DUR) PO SCH (05:08)
[2018-11-06] MEDS: FUROSEMIDE 40 MG/4 ML INJ (LASIX) IVP SCH (08:02)
[2018-11-06] MEDS: SACUBITRIL/VALSARTAN 24/26 MG (ENTRESTO) TABLET PO SCH ×2 (08:03→20:30)
[2018-11-06] MEDS: AMIODARONE 200 MG (CORDARONE) TAB PO SCH (08:04)
[2018-11-06] MEDS: CEFDINIR 300 MG (OMNICEF) CAP PO SCH ×2 (08:04→20:30)
[2018-11-06] MEDS: TICAGRELOR 90 MG TABLET (BRILINTA) PO SCH ×2 (08:04→20:30)
[2018-11-06] MEDS: ASPIRIN 81 MG CHEW (CHILDREN'S ASA) PO SCH (08:04)
[2018-11-06] MEDS ORDERED: KCL 20 MEQ TAB (K-DUR) PO ONE (09:00)
[2018-11-06] MEDS: SPIRONOLACTONE 25 MG (ALDACTONE) TAB PO SCH (09:00)
--- NOTE | 2018-11-06 09:50 | Diagnostic Imaging Report ---
INDICATION: Shortness of air COMPARISON: 11/05/2018 FINDINGS: Single frontal view of the chest demonstrates stable heart size and pulmonary vascularity. The lungs show somewhat low inspiratory volumes, but are otherwise clear. No large pleural effusion or pneumothorax is seen. The visualized osseous structures show no acute abnormalities. IMPRESSION: 1. No acute cardiopulmonary process. Dictated by: Dictated on workstation # [id number]
--- NOTE | 2018-11-06 10:02 | Progress Note-Hospitalist ---
Subjective HPI/CC On Admission Date Seen by Provider: Nov 06, 2018 Time Seen by Provider: 09:57 Pt is a 58yoCM with a PMH of recently diagnosed CAD s/p 6 stents and CHF. He states that he has not been to a doctor in years until a few weeks ago when he developed SOB. He was diagnosed with "walking pneumonia" and "severe bronchitis" by an EAR PULL MACHINE OPERATOR that he was seeing but was referred for an echo as well. The echo revealed an EF of 10-15% and he was then sent to a training program manager. Ultimately he was admitted to [facility] in [place] and underwent cardiac cath x2 on 10/29 and 10/30 with 3 stents placed during both caths. He was discharged from the hospital there on 11/02. He continued to have shortness of breath and returned to an ER in [place], [place] for further evaluation. He was found to have an elevated BNP, oxygen requirement, and mildly elevated troponin. [facility] was called for admission but was on diversion. He was thus admitted here for further evaluation and care. This morning he states his only complaint is shortness of breath. He denies lower extremity edema, chest pain, palpitations. He reports he has been compliant with his fluid and salt restriction as well as his medicines, including DAPT. His is at bedside with his medications and echo report from 10/14. Subjective/Events-last exam Pt reports feeling better. Slept better and less SOB. Was up and walking today. Objective Exam Vital Signs Vital Signs Date Time Temp Pulse Resp B/P (MAP) Pulse Ox O2 Delivery O2 Flow Rate FiO2 11/06/18 08:00 Nasal Cannula 2.00 11/06/18 08:00 98.3 90 20 85/69 (74) 96 Capillary Refill : Less Than 3 Seconds General Appearance: No Apparent Distress, WD/WN Neck: Normal Inspection; No JVD Respiratory: Lungs Clear, No Accessory Muscle Use, No Respiratory Distress Cardiovascular: Regular Rate, Rhythm, No Edema Gastrointestinal: Normal Bowel Sounds, Non Tender, Soft; No Distended, No Guarding, No Rebound Extremity: Normal Inspection, No Pedal Edema Neurologic/Psychiatric: Alert, Oriented x3, Normal Mood/Affect Results/Procedures Lab Laboratory Tests 11/06/18 03:03 Patient resulted labs reviewed. Imaging: Reviewed Imaging Report Assessment/Plan Assessment and Plan Assess & Plan/Chief Complaint Acutely decompensated heart failure Diagnosis/Problems Diagnosis/Problems (1) CHF (congestive heart failure) Status: Acute Assessment & Plan: Ischemic cardiomyopathy Echo shows EF 10% with global hypokinesis, mod/theron mitral regurg, mod tricuspid regurg and resolved pericardial effusion Cardiology consulted, appreciate recs Consider LifeVest prior to DC Continue IV Lasix as able for BP borderline hypotension so will need to adjust heart failure medications accordingly Na and fluid restriction daily weights, i/os only 300ml negative yesterday but limited with diuresis due to BP Qualifiers: Heart failure type: systolic Heart failure chronicity: acute on chronic Qualified Codes: I50.23 - Acute on chronic systolic (congestive) heart failure (2) Pneumonia Assessment & Plan: Sputum production and new leukocytosis Dr Ramirez started on Cefdinir to cover for pneumonia Not sepsis- hypotension due to cardiomyopathy/antihypertensives Regardless cannot give fluid bolus due to decompensated heart failure Qualifiers: Pneumonia type: due to unspecified organism Laterality: unspecified laterality Lung location: unspecified part of lung Qualified Codes: J18.9 - Pneumonia, unspecified organism (3) CAD (coronary artery disease), [place] coronary artery Status: Chronic Assessment & Plan: s/p 6 stents at [facility] on 10/29 and 10/30 Cont Brilinta, ASA, Statin Cardiology consulted, appreciate recs Qualifiers: [place] vs. transplanted heart: [place] heart Associated angina: without angina Qualified Codes: I25.10 - Atherosclerotic heart disease of [place] coronary artery without angina pectoris (4) Transaminitis Assessment & Plan: Likely due to congestion Chronic from outpatient labs Check here Clinical Quality Measures DVT/VTE Risk/Contraindication: Risk Factor Score Per Nursin RFS Level Per Nursing on Admit: 4+=Very High FELIX ESCALERA MD Nov 06, 2018 10:02
[2018-11-06] MEDS: CARVEDILOL 3.125 MG (COREG) TABLET PO SCH ×2 (10:58→20:30)
[2018-11-06] MEDS: ENOXAPARIN 30 MG/0.3 ML (LOVENOX) SYR SC SCH (11:07)
--- NOTE | 2018-11-06 14:20 | Progress Note-Cardiology ---
Cardiology SOAP Progress Note Subjective: Feels a little strong. Has been ambulating w/o shortness of breath on the floor. Able to sleep better last night. No cp. Has gen malaise and weakness Objective: I&O/Vital Signs 11/06/18 11/06/18 11/06/18 11/06/18 03:00 03:50 04:00 05:00 Pulse 86 79 78 Resp 14 14 14 B/P (MAP) 89/62 (71) 81/60 (67) 80/67 (71) Pulse Ox 95 95 96 97 O2 Delivery Nasal Cannula Nasal Cannula Nasal Cannula Nasal Cannula O2 Flow Rate 2.00 2.00 2.00 2.00 11/06/18 11/06/18 11/06/18 11/06/18 06:00 07:00 07:00 08:00 Temp 98.3 Pulse 73 92 92 90 Resp 18 20 B/P (MAP) 82/64 (70) 100/61 (74) 85/69 (74) Pulse Ox 96 98 96 O2 Delivery Nasal Cannula Nasal Cannula Nasal Cannula O2 Flow Rate 2.00 2.00 2.00 11/06/18 11/06/18 11/06/18 11/06/18 08:00 09:00 09:00 10:15 B/P (MAP) 79/50 (60) 83/74 (77) O2 Delivery Nasal Cannula Nasal Cannula O2 Flow Rate 2.00 2.00 11/06/18 11/06/18 11/06/18 12:00 12:00 12:50 Temp 99.0 Pulse 98 89 Resp 18 B/P (MAP) 98/54 (69) Pulse Ox 97 O2 Delivery Nasal Cannula Nasal Cannula O2 Flow Rate 2.00 2.00 11/06/18 00:00 Intake Total 850 ml Output Total 375 ml Balance 475 ml Weight (Pounds): 172 Weight (Ounces): 0.0 Weight (Calculated Kilograms): 78.726781 Constitutional: AAO x 3, well-developed, well-nourished Respiratory: other (diminished ) Cardiovascular: regular rate-rhythm, JVD, S1 and S2, systolic murmur (2/6 HSM at card apex) Gastrointestional: No tender; soft, distended, audible bowel sounds Extremities: no lower extremity edema bilateral Neurologic/Psychiatric: grossly intact, power is 5/5 both on sides Skin: rash (diffuse dark bruising to abdomen; left groin with mild bruising); No rash on exposed areas, No ulcerations on exposed areas Results/Procedures: Labs Laboratory Tests 11/06/18 03:03: White Blood Count 12.1H, Red Blood Count 4.57, Hemoglobin 13.2L, Hematocrit 40, Mean Corpuscular Volume 88, Mean Corpuscular Hemoglobin 29, Mean Corpuscular Hemoglobin Concent 33, Red Cell Distribution Width 14.1, Platelet Count 175, Mean Platelet Volume 12.0H, Neutrophils (%) (Auto) 77H, Lymphocytes (%) (Auto) 10L, Monocytes (%) (Auto) 12, Eosinophils (%) (Auto) 1, Basophils (%) (Auto) 0, Neutrophils # (Auto) 9.3H, Lymphocytes # (Auto) 1.2, Monocytes # (Auto) 1.5H, Eosinophils # (Auto) 0.1, Basophils # (Auto) 0.0, Sodium Level 135, Potassium Level 3.5L, Chloride Level 98, Carbon Dioxide Level 24, Anion Gap 13, Blood Urea Nitrogen 21H, Creatinine 1.11, Estimat Glomerular Filtration Rate > 60, BUN/Creatinine Ratio 19, Glucose Level 96, Calcium Level 8.9, Phosphorus Level 3.4, Magnesium Level 1.9 Microbiology 11/04/18 MRSA Screen - Final, Complete MRSA not isolated Laboratory Tests 11/05/18 02:55 11/06/18 03:03 A/P: Assessment: Acute on chronic systolic CHF due to ischemic cardiomyopathy CAD - cardiac cath at [facility] on - per stent cards - s/p Promus premier 2.75 x 16 mm stent to the LAD; Synergy 3.00 x 8 mm stent to circ; Synergy 3.00 x 16 mm stent to the P. circ; Synergy 2.50 x 32 mm stent to RCA, Promus Premier 2.00 x 38 mm stent to RCA and another Promus Premier 3.00 mm x 38 mm stent to the RCA - stenting done by Dr. Odonnell at [facility] ICM - LVEF 10-15% on echo of October 04, 2018. Echo of 11/04/18: LVEF 10%, no significant pericard eff, mod cardiomegaly, mod to sev MR, mod TR, RVSP 25 mmHg Frequent PVCs, isolated and coupled Family h/o CAD - father [place] in his late 50's Plan: * Complex management * Now on Live Vest * Continue current regimen: BB and BELINDA-inhib for cm, as tolerated by bp, DAPT for cor stents, furosemide and spironolactone for ac sys CHF, statin therapy because of CAD, amiodarone because of frequent vent ectopy in the setting of dilated cm with CHF * Monitor labs * Increase ambulation WON FRIEDMAN MD FACP [facility] Nov 06, 2018 14:20
[2018-11-06] MEDS: ATORVASTATIN 80 MG (LIPITOR) TABLET PO SCH (20:30)
--- NOTE | 2018-11-06 22:28 | NUR ---
Notified by pet care technicianPoly, patient in SVT. Patient in bed with eyes closed, in chair at bedside. Patient denies chest pain or pressure, reports recent shortness of air, but states it is better currently. EKG et VS obtained. Temp noted at 99.5. Dr Clarke notified. Orders received.
[2018-11-06] MEDS ORDERED: DIGOXIN 0.25 MG/ML (LANOXIN) 2 ML AMP ONE (22:39)
[2018-11-06] MEDS ORDERED: DIGOXIN 0.25 MG/ML (LANOXIN) 2 ML AMP IV ONE ×2 (22:45→23:00)
--- NOTE | 2018-11-06 23:15 | NUR ---
IV noted to be infiltrated when flushing. Removed, catheter intact, pressure held. IV attempts x2 unsuccessful. IV started in SHEILA with 20g. Flushes well et draws back blood.
[2018-11-07] MEDS ORDERED: DIGOXIN 0.25 MG/ML (LANOXIN) 2 ML AMP IV ONE (00:45)
[2018-11-07 03:40] LABS: BASOPHILS % (AUTO) 0 % (0-10); EOSINOPHILS % (AUTO) 0 % (0-10); HEMATOCRIT 42 % (40-54); HEMOGLOBIN 13.9 G/DL (13.3-17.7); LYMPHOCYTES # (AUTO) 1.1 X 10^3 (1.0-4.0); LYMPHOCYTES % (AUTO) 8 % (12-44); MEAN CORPUSCULAR HEMOGLOBIN 28 PG (25-34); MEAN CORPUSCULAR HGB CONC 33 G/DL (32-36); MEAN CORPUSCULAR VOLUME 86 FL (80-99); MEAN PLATELET VOLUME 11.8 FL (7.4-10.4); MONOCYTES % (AUTO) 15 % (0-12); NEUTROPHILS # (AUTO) 10.6 X 10^3 (1.8-7.8); NEUTROPHILS % (AUTO) 77 % (42-75); PLATELET COUNT 184 10^3/uL (130-400); RED CELL DISTRIBUTION WIDTH 14.5 % (10.0-14.5); WHITE BLOOD COUNT 13.8 10^3/uL (4.3-11.0)
[2018-11-07] MEDS: POTASSIUM CL 10MEQ/50ML IVPB 50 ML IV SCH (03:59)
[2018-11-07] MEDS: KCL 20 MEQ TAB (K-DUR) PO SCH (03:59)
[2018-11-07] MEDS: MAGNESIUM 1 GM/100 ML IVPB 100 ML IV SCH (03:59)
[2018-11-07 04:00] VITALS: BP 103/64
[2018-11-07 04:07] LABS: BUN/CREATININE RATIO 20; CALCIUM 8.8 MG/DL (8.5-10.1); CARBON DIOXIDE 20 MMOL/L (21-32); CHLORIDE 101 MMOL/L (98-107); CREATININE SERUM 0.87 MG/DL (0.60-1.30); GFR ESTIMATED > 60; GLUCOSE 105 MG/DL (70-105); MAGNESIUM 1.8 MG/DL (1.8-2.4); POTASSIUM 3.7 MMOL/L (3.6-5.0); SODIUM 132 MMOL/L (135-145)
[2018-11-07 08:00] VITALS: BP 110/71
[2018-11-07] MEDS: ASPIRIN 81 MG CHEW (CHILDREN'S ASA) PO SCH (08:04)
[2018-11-07] MEDS: AMIODARONE 200 MG (CORDARONE) TAB PO SCH (08:04)
[2018-11-07] MEDS: FUROSEMIDE 40 MG/4 ML INJ (LASIX) IVP SCH (08:04)
[2018-11-07] MEDS: TICAGRELOR 90 MG TABLET (BRILINTA) PO SCH ×2 (08:04→21:16)
[2018-11-07] MEDS: CARVEDILOL 3.125 MG (COREG) TABLET PO SCH ×2 (08:04→21:16)
[2018-11-07] MEDS: CEFDINIR 300 MG (OMNICEF) CAP PO SCH ×2 (08:04→21:16)
[2018-11-07] MEDS: SPIRONOLACTONE 25 MG (ALDACTONE) TAB PO SCH (08:04)
[2018-11-07] MEDS: SACUBITRIL/VALSARTAN 24/26 MG (ENTRESTO) TABLET PO SCH ×2 (08:04→21:16)
--- NOTE | 2018-11-07 08:45 | Progress Note-Cardiology ---
Cardiology SOAP Progress Note Subjective: Sitting up in a recliner at the bedside. Life Vest in place. He reports he did not sleep well last noc. States he was woke up during the night by nursing d/t a "fast heart rate". States he was sleeping any asymptomatic. C/O Life Vest being uncomfortable to wear in bed. Denies any c/o CP or palpitations. States he feels his breathing is better. Objective: I&O/Vital Signs 11/06/18 11/07/18 11/07/18 11/07/18 23:59 00:00 01:00 04:00 Temp 99.5 Pulse 138 98 Resp 18 B/P (MAP) 97/69 (78) Pulse Ox 99 99 99 O2 Delivery Nasal Cannula Nasal Cannula Nasal Cannula O2 Flow Rate 2.00 2.00 2.00 11/07/18 11/07/18 11/07/18 11/07/18 04:00 07:00 08:00 08:00 Temp 98.1 98.2 Pulse 83 88 94 Resp 16 B/P (MAP) 103/64 (77) 110/71 (84) Pulse Ox 95 99 O2 Delivery Nasal Cannula Nasal Cannula O2 Flow Rate 2.00 2.00 11/07/18 00:00 Intake Total 650 ml Output Total 600 ml Balance 50 ml Weight (Pounds): 172 Weight (Ounces): 9.0 Weight (Calculated Kilograms): 78.851424 Constitutional: AAO x 3, well-developed, well-nourished Respiratory: other (diminished ) Cardiovascular: regular rate-rhythm, JVD, S1 and S2, systolic murmur (2/6 HSM at card apex) Gastrointestional: No tender; soft, distended, audible bowel sounds Extremities: no lower extremity edema bilateral Neurologic/Psychiatric: grossly intact, power is 5/5 both on sides Skin: rash (diffuse dark bruising to abdomen; left groin with mild bruising); No rash on exposed areas, No ulcerations on exposed areas Results/Procedures: Labs Laboratory Tests 11/07/18 03:16: White Blood Count 13.8H, Red Blood Count 4.89, Hemoglobin 13.9, Hematocrit 42, Mean Corpuscular Volume 86, Mean Corpuscular Hemoglobin 28, Mean Corpuscular Hemoglobin Concent 33, Red Cell Distribution Width 14.5, Platelet Count 184, Mean Platelet Volume 11.8H, Neutrophils (%) (Auto) 77H, Lymphocytes (%) (Auto) 8L, Monocytes (%) (Auto) 15H, Eosinophils (%) (Auto) 0, Basophils (%) (Auto) 0, Neutrophils # (Auto) 10.6H, Lymphocytes # (Auto) 1.1, Monocytes # (Auto) 2.0H, Eosinophils # (Auto) 0.0, Basophils # (Auto) 0.0, Sodium Level 132L, Potassium Level 3.7, Chloride Level 101, Carbon Dioxide Level 20L, Anion Gap 11, Blood Urea Nitrogen 17, Creatinine 0.87, Estimat Glomerular Filtration Rate > 60, BUN/Creatinine Ratio 20, Glucose Level 105, Calcium Level 8.8, Phosphorus Level 3.0, Magnesium Level 1.8 Microbiology 11/04/18 MRSA Screen - Final, Complete MRSA not isolated Laboratory Tests 11/06/18 03:03 11/07/18 03:16 A/P: Assessment: Acute on chronic systolic CHF due to ischemic cardiomyopathy CAD - cardiac cath at [facility] on - per stent cards - s/p Promus premier 2.75 x 16 mm stent to the LAD; Synergy 3.00 x 8 mm stent to circ; Synergy 3.00 x 16 mm stent to the P. circ; Synergy 2.50 x 32 mm stent to RCA, Promus Premier 2.00 x 38 mm stent to RCA and another Promus Premier 3.00 mm x 38 mm stent to the RCA - stenting done by Dr. Odonnell at [facility] ICM - LVEF 10-15% on echo of October 04, 2018. Echo of 11/04/18: LVEF 10%, no significant pericard eff, mod cardiomegaly, mod to sev MR, mod TR, RVSP 25 mmHg Frequent PVCs, isolated and coupled Leukocytosis with low grade temp of undetermined etiology - management per Medical/Pulmonary services ?ARASH ( has noted some signs of ARASH) Family h/o CAD - father [place] in his late 50's Plan: * Complex management * Now on Live Vest * Continue current regimen: BB and BELINDA-inhib for cm, as tolerated by bp, DAPT for cor stents, furosemide and spironolactone for ac sys CHF, statin therapy because of CAD, amiodarone because of frequent vent ectopy in the setting of dilated cm with CHF * Monitor labs * Increase ambulation * Change lasix to oral * D/t low grade fever, elevated WBC and episodes of sinus tachycardia we advise at least one more day of hospitalization Physician Assessment Physician Assessment Less short of breath (compared to time of admission). No cp or palp or syncope. Gen malaise present has noted heavy snoring and occasional, temporary (seconds) quitting of breathing at home at night (chronic) Lungs: good bilat air entry Cor: reg Ext: no c/c/e ECG last night: sinus tach w/o change in QRS complexes A&R * As documented in our note above that I updated (italics) and as noted below * Continue current regimen * Management of low grade fever and leucocytosis is with the Hospitalist [place] * Decrease diuretics because CHF clinically compensated and pt exhibiting mild hyponatremia * Transfer to floor on telemetry * Consider sleep studies. Pt and will discuss with Dr Ramirez * Monitor labs FRANCIS VIEIRA Nov 07, 2018 08:45 WON FRIEDMAN MD FACP [facility] Nov 07, 2018 09:35
[2018-11-07] MEDS: FUROSEMIDE 40 MG (LASIX) TAB PO SCH (09:00)
[2018-11-07] MEDS: ENOXAPARIN 30 MG/0.3 ML (LOVENOX) SYR SC SCH (10:14)
--- NOTE | 2018-11-07 10:30 | NUR ---
Report called to BRENDON Box
[2018-11-07 12:00] VITALS: BP 87/61
[2018-11-07 15:22] VITALS: BP 90/59
--- NOTE | 2018-11-07 15:27 | Progress Note-Hospitalist ---
Progress Note Progress Notes/Assess & Plan Date Seen 11/07/18 Time Seen by Provider: 15:18 Assessment & Plan The patient is a 58-year-old white male who apparently noted the onset of shortness of breath 2-3 weeks ago. He saw his provider and ultimately had an echocardiogram. This apparently showed an ejection fraction of 10-15 percent. He was referred to [place] cardiology and had multiple stents performed. He also reports that with the use of medication he lost 20 pounds and his belly became much smaller. He had no swelling in the ankles. After discharge from [place] he began to note increasing shortness of breath. He was seen at the emergency room at [facility] and was felt to have recurrent congestive heart failure. [facility] was on bed diversion and he was referred here. Physical exam: He appears younger than stated age. He is seated in the chair at bedside is not dyspneic. Lungs show clear breath sounds. CV is regular with occasional prematurity. Abdomen is flat. Extremities show no pedal edema. Impression: Severe cardiomyopathy with ejection fraction 10-15 percent. 2.recent multiple coronary artery stents. 3.recurrent congestive heart failure. 4.significant risk for ventricular tachycardia. Plan: Placement of defibrillator vest. Discussion with patient and his relative to what this all means. ALIN DAVIS MD Nov 07, 2018 15:27
[2018-11-07 19:12] VITALS: BP 104/74
[2018-11-07] MEDS: ATORVASTATIN 80 MG (LIPITOR) TABLET PO SCH (21:17)
[2018-11-07 23:59] VITALS: BP 109/70
[2018-11-08] VITALS (8 sets, daily range): BP systolic 78–106; BP diastolic 52–72
[2018-11-08 03:55] LABS: BASOPHILS % (AUTO) 0 % (0-10); EOSINOPHILS % (AUTO) 0 % (0-10); HEMATOCRIT 45 % (40-54); HEMOGLOBIN 14.8 G/DL (13.3-17.7); LYMPHOCYTES % (AUTO) 6 % (12-44); MEAN CORPUSCULAR HEMOGLOBIN 28 PG (25-34); MEAN CORPUSCULAR HGB CONC 33 G/DL (32-36); MEAN CORPUSCULAR VOLUME 86 FL (80-99); MEAN PLATELET VOLUME 11.8 FL (7.4-10.4); MONOCYTES # (AUTO) 2.2 X 10^3 (0.0-1.0); MONOCYTES % (AUTO) 14 % (0-12); NEUTROPHILS # (AUTO) 12.5 X 10^3 (1.8-7.8); NEUTROPHILS % (AUTO) 80 % (42-75); PLATELET COUNT 202 10^3/uL (130-400); WHITE BLOOD COUNT 15.7 10^3/uL (4.3-11.0)
[2018-11-08 04:13] LABS: BUN/CREATININE RATIO 14; CALCIUM 9.3 MG/DL (8.5-10.1); CARBON DIOXIDE 22 MMOL/L (21-32); CHLORIDE 98 MMOL/L (98-107); CREATININE SERUM 1.05 MG/DL (0.60-1.30); GFR ESTIMATED > 60; GLUCOSE 119 MG/DL (70-105); MAGNESIUM 1.8 MG/DL (1.8-2.4); PHOSPHORUS 2.7 MG/DL (2.3-4.7); POTASSIUM 4.3 MMOL/L (3.6-5.0); SODIUM 132 MMOL/L (135-145)
[2018-11-08 04:27] LABS: LYMPHOCYTES % (MANUAL) 7 %; MONOCYTES % (MANUAL) 9 %; NEUTROPHILS % (MANUAL) 84 %
[2018-11-08] MEDS: POTASSIUM CL 10MEQ/50ML IVPB 50 ML IV SCH (06:50)
[2018-11-08] MEDS: MAGNESIUM 1 GM/100 ML IVPB 100 ML IV SCH (06:50)
[2018-11-08] MEDS: KCL 20 MEQ TAB (K-DUR) PO SCH (07:08)
--- NOTE | 2018-11-08 07:25 | Pulmonary Progress Note ---
Subjective Time Seen by a Provider: 07:28 Subjective/Events-last exam Pt now having fevers and worsening leukocytosis Sepsis Event Evaluation Height, Weight, BMI Height: 5'8.00" Weight: 172lbs. 9.0oz. 78.328294om; 26.5 BMI Method: Exam Exam Vital Signs Date Time Temp Pulse Resp B/P (MAP) Pulse Ox O2 Delivery O2 Flow Rate FiO2 11/08/18 03:57 99.7 98 18 91/61 (71) 100 Nasal Cannula 2.00 11/08/18 01:00 125 11/07/18 23:59 100.6 105 20 109/70 (83) Nasal Cannula 2.00 11/07/18 22:51 Nasal Cannula 2.00 11/07/18 21:00 97 Nasal Cannula 2.00 11/07/18 19:12 99.3 104 20 104/74 (84) 97 Nasal Cannula 2.00 11/07/18 19:05 105 11/07/18 15:22 99.4 99 22 90/59 (69) 96 Room Air 11/07/18 12:00 97.6 87 20 87/61 (70) 95 Nasal Cannula 2.00 11/07/18 08:00 98.2 94 110/71 (84) 11/07/18 08:00 99 Nasal Cannula 2.00 I & O 11/08/18 07:00 Intake Total 900 ml Output Total 600 ml Balance 300 ml Height & Weight Height: 5'8.00" Weight: 172lbs. 9.0oz. 78.246796pp; 26.5 BMI Method: General Appearance: No Apparent Distress, WD/WN Neck: Normal Inspection; No JVD Respiratory: Lungs Clear, No Accessory Muscle Use, No Respiratory Distress Cardiovascular: Regular Rate, Rhythm, No Edema Capillary Refill: Less Than 3 Seconds Gastrointestinal: normal bowel sounds, non tender, soft Extremity: Normal Inspection, No Pedal Edema Neurologic/Psychiatric: Alert, Oriented x3, Normal Mood/Affect Results Lab Laboratory Tests 11/07/18 03:16 11/08/18 03:40 Assessment/Plan Assessment/Plan CHFAE EF 10% -cardiology following -Plavix -Life vest Pneumonia - Pt has worsening fever, and leukocytosis -Will start Cefepime. PT is allergic to PCN -repeat marquez cultures and CXR. -Oxygen and monitor -[facility] -out pt testing Hyponatremia -Monitor TONO LOMBARDO DO Nov 08, 2018 07:25
[2018-11-08] MEDS: ASPIRIN 81 MG CHEW (CHILDREN'S ASA) PO SCH (08:56)
[2018-11-08] MEDS: FUROSEMIDE 40 MG (LASIX) TAB PO SCH (08:56)
[2018-11-08] MEDS: AMIODARONE 200 MG (CORDARONE) TAB PO SCH (08:56)
[2018-11-08] MEDS: CARVEDILOL 3.125 MG (COREG) TABLET PO SCH ×2 (08:56→20:45)
[2018-11-08] MEDS: SPIRONOLACTONE 25 MG (ALDACTONE) TAB PO SCH (08:56)
[2018-11-08] MEDS: TICAGRELOR 90 MG TABLET (BRILINTA) PO SCH ×2 (08:56→20:46)
[2018-11-08] MEDS: SACUBITRIL/VALSARTAN 24/26 MG (ENTRESTO) TABLET PO SCH ×2 (09:02→20:45)
[2018-11-08] MEDS: ACETAMINOPHEN 325 MG TABLET PO PRN ×2 (09:02→20:45)
[2018-11-08] MEDS: ENOXAPARIN 30 MG/0.3 ML (LOVENOX) SYR SC SCH (10:20)
[2018-11-08 10:28] LABS: BILIRUBIN,URINE NEGATIVE (NEGATIVE); CLARITY,URINE CLEAR; COLOR,URINE AMBER; GLUCOSE, URINE (UA) 1+ (NEGATIVE); KETONES,URINE 3+ (NEGATIVE); LEUKOCYTE ESTERASE ,URINE 1+ (NEGATIVE); NITRITE,URINE NEGATIVE (NEGATIVE); PH,URINE 5 (5-9); PROTEIN,URINE 3+ (NEGATIVE); UROBILINOGEN,URINE NORMAL (NORMAL)
[2018-11-08 10:53] LABS: AMORPHOUS SEDIMENT,UR FEW AMOR PHOSPHATE /LPF; BACTERIA,URINE MODERATE /HPF; RBC,URINE RARE /HPF; SQUAMOUS EPITHELIAL CELL,UR RARE /HPF; WBC,URINE RARE /HPF
[2018-11-08] MEDS ORDERED: AMIO200T4 PO (11:25)
[2018-11-08] MEDS ORDERED: CARV3.122 PO (11:25)
[2018-11-08] MEDS ORDERED: ASPI-999 PO (11:25)
[2018-11-08] MEDS ORDERED: SACU1TAB PO (11:25)
--- NOTE | 2018-11-08 11:30 | Progress Note-Cardiology ---
Cardiology SOAP Progress Note Subjective: Sitting up in a chair at the bedside. Reports fever this morning. Feels SOB is much improved. No c/o CP, palpitations, syncope or near syncope. Has been up walking in the halls. Objective: I&O/Vital Signs 11/08/18 11/08/18 11/08/18 11/08/18 03:57 07:00 08:27 09:00 Temp 99.7 101.1 Pulse 98 97 90 Resp 18 18 B/P (MAP) 91/61 (71) 106/72 (83) Pulse Ox 100 96 96 O2 Delivery Nasal Cannula High Flow N/C High Flow N/C O2 Flow Rate 2.00 2.00 2.00 11/08/18 11/08/18 11/08/18 11/08/18 09:32 12:00 13:13 13:30 Temp 98.1 98.0 Pulse 72 80 Resp 18 B/P (MAP) 78/52 (61) 78/56 (63) Pulse Ox 95 O2 Delivery High Flow N/C O2 Flow Rate 2.00 11/08/18 14:00 B/P (MAP) 78/56 (63) 11/08/18 00:00 Intake Total 600 ml Output Total 350 ml Balance 250 ml Weight (Pounds): 172 Weight (Ounces): 9.0 Weight (Calculated Kilograms): 78.663653 Constitutional: AAO x 3, well-developed, well-nourished Respiratory: lungs clear to auscultation Cardiovascular: regular rate-rhythm, JVD, S1 and S2, systolic murmur (2/6 HSM at card apex) Gastrointestional: No tender; soft, distended, audible bowel sounds Extremities: no lower extremity edema bilateral Neurologic/Psychiatric: grossly intact, power is 5/5 both on sides Skin: rash (diffuse dark bruising to abdomen; left groin with mild bruising); No rash on exposed areas, No ulcerations on exposed areas Results/Procedures: Labs Laboratory Tests 11/08/18 03:40: White Blood Count 15.7H, Red Blood Count 5.21, Hemoglobin 14.8, Hematocrit 45, Mean Corpuscular Volume 86, Mean Corpuscular Hemoglobin 28, Mean Corpuscular Hemoglobin Concent 33, Red Cell Distribution Width 14.0, Platelet Count 202, Mean Platelet Volume 11.8H, Neutrophils (%) (Auto) 80H, Lymphocytes (%) (Auto) 6L, Monocytes (%) (Auto) 14H, Eosinophils (%) (Auto) 0, Basophils (%) (Auto) 0, Neutrophils # (Auto) 12.5H, Lymphocytes # (Auto) 1.0, Monocytes # (Auto) 2.2H, Eosinophils # (Auto) 0.0, Basophils # (Auto) 0.0, Neutrophils % (Manual) 84, Lymphocytes % (Manual) 7, Monocytes % (Manual) 9, Sodium Level 132L, Potassium Level 4.3, Chloride Level 98, Carbon Dioxide Level 22, Anion Gap 12, Blood Urea Nitrogen 15, Creatinine 1.05, Estimat Glomerular Filtration Rate > 60, BUN/Creatinine Ratio 14, Glucose Level 119H, Calcium Level 9.3, Phosphorus Level 2.7, Magnesium Level 1.8 11/08/18 07:41: Lactic Acid Level 1.08 11/08/18 09:50: Urine Color AMBERH, Urine Clarity CLEAR, Urine pH 5, Urine Specific [place] 1.025H, Urine Protein 3+H, Urine Glucose (UA) 1+H, Urine Ketones 3+H, Urine Nitrite NEGATIVE, Urine Bilirubin NEGATIVE, Urine Urobilinogen NORMAL, Urine Leukocyte Esterase 1+H, Urine RBC (Auto) 1+H, Urine RBC RARE, Urine WBC RARE, Urine Squamous Epithelial Cells RARE, Urine Crystals PRESENTH, Urine Amorphous Sediment FEW LEMUEL PHOSPHATEH, Urine Bacteria MODERATEH, Urine Casts NONE, Urine Mucus NEGATIVE, Urine Culture Indicated YES Microbiology 11/06/18 Blood Culture - Preliminary, Resulted No growth 11/06/18 Gram Stain - Final, Complete 11/06/18 Sputum Culture - Final, Complete Usual upper respiratory ant A/P: Assessment: Fever on 11/08/18. Etiology unclear: UTI vs resp tract infection, managed by the Hospitalist Service Acute on chronic systolic CHF due to ischemic cardiomyopathy - clinically improved CAD - cardiac cath at [facility] on - per stent cards - s/p Promus premier 2.75 x 16 mm stent to the LAD; Synergy 3.00 x 8 mm stent to circ; Synergy 3.00 x 16 mm stent to the P. circ; Synergy 2.50 x 32 mm stent to RCA, Promus Premier 2.00 x 38 mm stent to RCA and another Promus Premier 3.00 mm x 38 mm stent to the RCA - stenting done by Dr. Odonnell at [facility] ICM - LVEF 10-15% on echo of October 04, 2018. Echo of 11/04/18: LVEF 10%, no significant pericard eff, mod cardiomegaly, mod to sev MR, mod TR, RVSP 25 mmHg Frequent PVCs, isolated and coupled Leukocytosis with low grade temp of undetermined etiology - management per Medical/Pulmonary services ?ARASH ( has noted some signs of ARASH) Family h/o CAD - father [place] in his late 50's Plan: * Complex management * Now on Live Vest * Continue current regimen: BB and BELINDA-inhib for cm, as tolerated by bp, DAPT for cor stents, furosemide and spironolactone for ac sys CHF, statin therapy because of CAD, amiodarone because of frequent vent ectopy in the setting of d ilated cm with CHF * Monitor labs * Increase ambulation * UTI - management per medical services * Advise out pt cardiac rehab (they wish to discuss with Dr. Colon) * They wish to f/u as an out pt with Dr. Colon (primary body joiner) Physician Assessment Physician Assessment No cp or palp or syncope Shortness of breath better Stamina improved Fever this am Lungs: fair bilat air entry, dec at the bases Cor: reg Ext: no c/c/e A&R * As documented in our note above that I updated (italics) and as noted below * I discussed his case in detail with Dr Hernandez of the Hospitalist eder on the phone this * D/c to be held today because of fevers and suspected systemic infection FRANCIS VIEIRA LAND TITLE EXAMINER Nov 08, 2018 11:29 WON FRIEDMAN MD FACP FAC CCDS Nov 08, 2018 15:32
--- NOTE | 2018-11-08 11:43 | Progress Note-Hospitalist ---
Progress Note Progress Notes/Assess & Plan Date Seen 11/08/18 Time Seen by Provider: 11:40 Assessment & Plan It was originally hoped that the patient would be ready for discharge today. However he has spiked a fever of 101.9 at 0830 this morning. It is also noted that his white blood count has climbed serially beginning with 12.1 on the 13.8 on the and 15.7 today. Accordingly UA and chest x-ray have been order ed. Focused Exam Lactate Level 11/08/18 07:41: Lactic Acid Level 1.08 Lactic Acid Level Laboratory Tests Test 11/08/18 07:41 Lactic Acid Level 1.08 MMOL/L (0.50-2.00) ALIN DAVIS MD Nov 08, 2018 11:43
--- NOTE | 2018-11-08 11:50 | Diagnostic Imaging Report ---
INDICATION: Fever. TECHNIQUE: Two view chest 11:35 AM CORRELATION STUDY: 11/06/2018 FINDINGS: External defibrillator vest is present does obscure detail. The heart size is mildly enlarged but stable. Vasculature is improved relatively normal at followup is largely obscured. There is new consolidation about the right lung base likely reflecting a basilar pneumonia along with small right pleural effusion. May be trace left pleural effusion. IMPRESSION: 1. Finding suggest new infiltrate versus atelectasis along with effusion at the right lung base. Trace left pleural effusion. Dictated by: Dictated on workstation # [id number]
--- NOTE | 2018-11-08 11:52 | NUR ---
PT AND REFUSING TO SEE DR. DAVIS.
[2018-11-08] MEDS: CEFEPIME INJECTION 1,000 MG in WATER (STERILE) FOR INJECTION 10 ML IV SCH ×2 (11:54→17:45)
--- NOTE | 2018-11-08 14:21 | NUR ---
ZECHARIAH MICHELLE NOTIFIED OF BP 78/56 MANUALLY. PT IS ASYMPTOMATIC RESTING IN BED WITH NO COMPLAINTS. ORDERS TO CONTINUE TO MONITOR BP MANUALLY.
[2018-11-08] MEDS: ATORVASTATIN 80 MG (LIPITOR) TABLET PO SCH (20:45)
[2018-11-09] VITALS (8 sets, daily range): BP systolic 76–103; BP diastolic 49–71
[2018-11-09] MEDS: CEFEPIME INJECTION 1,000 MG in WATER (STERILE) FOR INJECTION 10 ML IV SCH ×4 (00:43→18:27)
[2018-11-09 03:37] LABS: BASOPHILS % (AUTO) 0 % (0-10); EOSINOPHILS % (AUTO) 0 % (0-10); HEMATOCRIT 39 % (40-54); HEMOGLOBIN 13.1 G/DL (13.3-17.7); LYMPHOCYTES # (AUTO) 1.1 X 10^3 (1.0-4.0); LYMPHOCYTES % (AUTO) 7 % (12-44); MEAN CORPUSCULAR HEMOGLOBIN 28 PG (25-34); MEAN CORPUSCULAR HGB CONC 33 G/DL (32-36); MEAN CORPUSCULAR VOLUME 85 FL (80-99); MEAN PLATELET VOLUME 11.5 FL (7.4-10.4); MONOCYTES # (AUTO) 2.2 X 10^3 (0.0-1.0); MONOCYTES % (AUTO) 14 % (0-12); NEUTROPHILS # (AUTO) 12.9 X 10^3 (1.8-7.8); NEUTROPHILS % (AUTO) 79 % (42-75); PLATELET COUNT 175 10^3/uL (130-400); RED CELL DISTRIBUTION WIDTH 14.3 % (10.0-14.5); WHITE BLOOD COUNT 16.3 10^3/uL (4.3-11.0)
[2018-11-09] MEDS: POTASSIUM CL 10MEQ/50ML IVPB 50 ML IV SCH (03:53)
[2018-11-09] MEDS: MAGNESIUM 1 GM/100 ML IVPB 100 ML IV SCH (03:54)
[2018-11-09 04:00] LABS: BUN/CREATININE RATIO 19; CALCIUM 8.8 MG/DL (8.5-10.1); CARBON DIOXIDE 18 MMOL/L (21-32); CHLORIDE 99 MMOL/L (98-107); CREATININE SERUM 1.14 MG/DL (0.60-1.30); GFR ESTIMATED > 60; GLUCOSE 115 MG/DL (70-105); MAGNESIUM 1.8 MG/DL (1.8-2.4); PHOSPHORUS 3.4 MG/DL (2.3-4.7); POTASSIUM 3.8 MMOL/L (3.6-5.0); SODIUM 129 MMOL/L (135-145)
[2018-11-09] MEDS: KCL 20 MEQ TAB (K-DUR) PO SCH (04:32)
--- NOTE | 2018-11-09 07:20 | Pulmonary Progress Note ---
Subjective Time Seen by a Provider: 11:11 Subjective/Events-last exam Pt has been hypotensive. Sepsis Event Evaluation Height, Weight, BMI Height: 5'8.00" Weight: 181lbs. 6.0oz. 82.834833nu; 26.5 BMI Method: Focused Exam Lactate Level 11/08/18 07:41: Lactic Acid Level 1.08 Exam Exam Vital Signs Date Time Temp Pulse Resp B/P (MAP) Pulse Ox O2 Delivery O2 Flow Rate FiO2 11/09/18 03:38 98.4 94 18 80/50 (60) 93 Room Air 11/09/18 01:00 83 11/08/18 23:45 98.2 83 18 80/52 (61) 91 Room Air 11/08/18 21:42 98.1 11/08/18 21:00 96 High Flow N/C 2.00 11/08/18 20:45 100.4 11/08/18 19:25 100.4 86 18 94/56 (69) 93 Room Air 11/08/18 19:00 80 11/08/18 15:37 98.7 71 18 96/68 (77) 95 High Flow N/C 2.00 11/08/18 14:00 78/56 (63) 11/08/18 13:30 78/56 (63) 11/08/18 13:13 80 11/08/18 12:00 98.0 72 18 78/52 (61) 95 High Flow N/C 2.00 11/08/18 09:00 96 High Flow N/C 2.00 11/08/18 08:27 101.1 90 18 106/72 (83) 96 High Flow N/C 2.00 I & O 11/09/18 07:00 Intake Total 750 ml Output Total 265 ml Balance 485 ml Height & Weight Height: 5'8.00" Weight: 181lbs. 6.0oz. 82.102318ym; 26.5 BMI Method: General Appearance: No Apparent Distress, WD/WN Neck: Normal Inspection; No JVD Respiratory: Lungs Clear, No Accessory Muscle Use, No Respiratory Distress Cardiovascular: Regular Rate, Rhythm, No Edema Capillary Refill: Less Than 3 Seconds Gastrointestinal: normal bowel sounds, non tender, soft Extremity: Normal Inspection, No Pedal Edema Neurologic/Psychiatric: Alert, Oriented x3, Normal Mood/Affect Results Lab Laboratory Tests 11/08/18 03:40 11/09/18 03:20 Assessment/Plan Assessment/Plan CHFAE EF 10% -cardiology following -Plavix -Life vest Pneumonia - Pt has worsening fever, and leukocytosis -Continue Cefepime. PT is allergic to PCN -repeat marquez cultures and CXR. -Oxygen and monitor -IS Hypotension and metabolic acidosis -Check LA -Give a liter of NS CAD with recent 6 stents placement at [place] -Cardiology following Probable ARASH -out pt testing Hyponatremia -Monitor TONO LOMBARDO DO Nov 09, 2018 07:20
[2018-11-09] MEDS ORDERED: NS IV 1000 ML 1,000 ML IV SCH (07:30)
[2018-11-09] MEDS ORDERED: NS IV 1000 ML 1,000 ML IV NR (07:32)
[2018-11-09] MEDS: CARVEDILOL 3.125 MG (COREG) TABLET PO SCH ×2 (09:00→22:01)
[2018-11-09] MEDS: TICAGRELOR 90 MG TABLET (BRILINTA) PO SCH ×2 (10:38→22:02)
[2018-11-09] MEDS: ASPIRIN 81 MG CHEW (CHILDREN'S ASA) PO SCH (10:38)
[2018-11-09] MEDS: AMIODARONE 200 MG (CORDARONE) TAB PO SCH (10:38)
[2018-11-09] MEDS: SACUBITRIL/VALSARTAN 24/26 MG (ENTRESTO) TABLET PO SCH ×2 (10:43→22:01)
--- NOTE | 2018-11-09 10:47 | Progress Note-Hospitalist ---
Subjective HPI/CC On Admission Date Seen by Provider: Nov 09, 2018 Time Seen by Provider: 10:00 Pt is a 58yoCM with a PMH of recently diagnosed CAD s/p 6 stents and CHF. He states that he has not been to a doctor in years until a few weeks ago when he developed SOB. He was diagnosed with "walking pneumonia" and "severe bronchitis" by an STATISTICAL METHODS PROFESSOR that he was seeing but was referred for an echo as well. The echo revealed an EF of 10-15% and he was then sent to a manager interface. Ultimately he was admitted to [facility] in [place] and underwent cardiac cath x2 on 10/29 and 10/30 with 3 stents placed during both caths. He was discharged from the hospital there on 11/02. He continued to have shortness of breath and returned to an ER in [place], [place] for further evaluation. He was found to have an elevated BNP, oxygen requirement, and mildly elevated troponin. [place] was called for admission but was on diversion. He was thus admitted here for further evaluation and care. This morning he states his only complaint is shortness of breath. He denies lower extremity edema, chest pain, palpitations. He reports he has been compliant with his fluid and salt restriction as well as his medicines, including DAPT. His is at bedside with his medications and echo report from 10/14. Subjective/Events-last exam Temperature of 100 max after 101 yesterday. Cefepime maintained. Sodium level 132. IV fluid will be given for low BP. Pt really wants to go home and he is walking around with his . at the bedside concerned that were giving him IV fluid but he is on fluid restriction because his sodium is so high and I explained how normal saline works and free water will continue to be restricted by mouth. Patient's seem to be very dissatisfied with his overall management plan and tried to reassure them but I was told that they did not care for Dr Hernandez' management yesterday so I may need to take a step back and allow specialists to manage his care Review of Systems General: Fatigue Pulmonary: Dyspnea Focused Exam Lactate Level 11/08/18 07:41: Lactic Acid Level 1.08 11/09/18 07:28: Lactic Acid Level 0.77 Lactic Acid Level Objective Exam Vital Signs Vital Signs Date Time Temp Pulse Resp B/P (MAP) Pulse Ox O2 Delivery O2 Flow Rate FiO2 11/09/18 15:50 99.0 105 18 95/58 (70) 99 Room Air 11/08/18 21:00 2.00 Capillary Refill : Less Than 3 Seconds General Appearance: No Apparent Distress, WD/WN Neck: Normal Inspection; No JVD Respiratory: Lungs Clear, Normal Breath Sounds, No Accessory Muscle Use, No Respiratory Distress Cardiovascular: Regular Rate, Rhythm, No Edema Gastrointestinal: Normal Bowel Sounds, Non Tender, Soft; No Distended, No Guarding, No Rebound Extremity: Normal Inspection, No Pedal Edema Neurologic/Psychiatric: Alert, Oriented x3, Normal Mood/Affect Results/Procedures Lab Laboratory Tests 11/09/18 03:20 Patient resulted labs reviewed. Imaging: Reviewed Imaging Report Assessment/Plan Assessment and Plan Assess & Plan/Chief Complaint Assessment: CHFAE EF 10% Lifevest maintained Pneumonia with hypoxia and fever CAD with stents placed at [place] Hyponatremia Plan: IV abx IVF Fluid restrict free fluid Diagnosis/Problems Diagnosis/Problems (1) Cardiomyopathy Status: Chronic Qualifiers: Cardiomyopathy type: unspecified Qualified Codes: I42.9 - Cardiomyopathy, unspecified (2) CHF (congestive heart failure) Status: Acute Qualifiers: Heart failure type: systolic Heart failure chronicity: acute on chronic Qualified Codes: I50.23 - Acute on chronic systolic (congestive) heart failure (3) Pneumonia Status: Acute Qualifiers: Pneumonia type: due to unspecified organism Laterality: unspecified laterality Lung location: unspecified part of lung Qualified Codes: J18.9 - Pneumonia, unspecified organism (4) CAD (coronary artery disease), [place] coronary artery Status: Chronic Qualifiers: [place] vs. transplanted heart: [place] heart Associated angina: without angina Qualified Codes: I25.10 - Atherosclerotic heart disease of [place] coronary artery without angina pectoris Clinical Quality Measures DVT/VTE Risk/Contraindication: Risk Factor Score Per Nursin RFS Level Per Nursing on Admit: 4+=Very High YOSELYN MILLER DO Nov 09, 2018 10:47
[2018-11-09] MEDS: ENOXAPARIN 30 MG/0.3 ML (LOVENOX) SYR SC SCH (10:54)
[2018-11-09] MEDS: FUROSEMIDE 40 MG (LASIX) TAB PO SCH (10:54)
--- NOTE | 2018-11-09 14:42 | Progress Note-Cardiology ---
Cardiology SOAP Progress Note Subjective: Gen malaise No cp or palp or syncope Short of breath with mild to mod exertion Objective: I&O/Vital Signs 11/09/18 11/09/18 11/09/18 11/09/18 03:38 07:13 08:00 09:00 Temp 98.4 100.2 Pulse 94 101 92 Resp 18 18 B/P (MAP) 80/50 (60) 96/58 (71) Pulse Ox 93 93 93 O2 Delivery Room Air Room Air Room Air 11/09/18 11/09/18 11/09/18 11/09/18 09:00 10:00 12:00 12:28 Temp 98.6 99.0 Pulse 114 108 Resp 20 18 B/P (MAP) 90/56 (67) 93/60 (71) 94/61 (72) Pulse Ox 93 93 O2 Delivery Room Air Room Air 11/09/18 00:00 Intake Total 650 ml Output Total 265 ml Balance 385 ml Weight (Pounds): 181 Weight (Ounces): 6.0 Weight (Calculated Kilograms): 82.148751 Constitutional: AAO x 3, well-developed, well-nourished Respiratory: lungs clear to auscultation Cardiovascular: regular rate-rhythm, JVD, S1 and S2, systolic murmur (2/6 HSM at card apex) Gastrointestional: No tender; soft, distended, audible bowel sounds Extremities: no lower extremity edema bilateral Neurologic/Psychiatric: grossly intact, power is 5/5 both on sides Skin: rash (diffuse dark bruising to abdomen; left groin with mild bruising); No rash on exposed areas, No ulcerations on exposed areas Results/Procedures: Labs Laboratory Tests 11/09/18 03:20: White Blood Count 16.3H, Red Blood Count 4.61, Hemoglobin 13.1L, Hematocrit 39L, Mean Corpuscular Volume 85, Mean Corpuscular Hemoglobin 28, Mean Corpuscular Hemoglobin Concent 33, Red Cell Distribution Width 14.3, Platelet Count 175, Mean Platelet Volume 11.5H, Neutrophils (%) (Auto) 79H, Lymphocytes (%) (Auto) 7L, Monocytes (%) (Auto) 14H, Eosinophils (%) (Auto) 0, Basophils (%) (Auto) 0, Neutrophils # (Auto) 12.9H, Lymphocytes # (Auto) 1.1, Monocytes # (Auto) 2.2H, Eosinophils # (Auto) 0.0, Basophils # (Auto) 0.0, Sodium Level 129L, Potassium Level 3.8, Chloride Level 99, Carbon Dioxide Level 18L, Anion Gap 12, Blood Urea Nitrogen 22H, Creatinine 1.14, Estimat Glomerular Filtration Rate > 60, BUN/Creatinine Ratio 19, Glucose Level 115H, Calcium Level 8.8, Phosphorus Level 3.4, Magnesium Level 1.8 11/09/18 07:28: Lactic Acid Level 0.77 Microbiology 11/06/18 Blood Culture - Preliminary, Resulted No growth 11/08/18 Gram Stain - Final, Resulted 11/08/18 Sputum Culture - Preliminary, Resulted Usual upper respiratory ant 11/08/18 Urine Culture - Final, Complete NO GROWTH A/P: Assessment: Pneumonia, managed by the Hospitalist Service Acute on chronic systolic CHF due to ischemic cardiomyopathy - clinically improved CAD - cardiac cath at [facility] on - per stent cards - s/p Promus premier 2.75 x 16 mm stent to the LAD; Synergy 3.00 x 8 mm stent to circ; Synergy 3.00 x 16 mm stent to the P. circ; Synergy 2.50 x 32 mm stent to RCA, Promus Premier 2.00 x 38 mm stent to RCA and another Promus Premier 3.00 mm x 38 mm stent to the RCA - stenting done by Dr. Odonnell at [facility] ICM - LVEF 10-15% on echo of October 04, 2018. Echo of 11/04/18: LVEF 10%, no si gnificant pericard eff, mod cardiomegaly, mod to sev MR, mod TR, RVSP 25 mmHg Frequent PVCs, isolated and coupled ?ARASH ( has noted some signs of ARASH) Hyponatremia: SIADH (due to pneumonia) vs spironolactone therapy Family h/o CAD - father [place] in his late 50's Plan: * Complex management * I discussed his case with Dr Beverly on the phone * Reduce spironolactone * Monitor labs * Increase ambulation WON FRIEDMAN MD FACP FAC CCDS Nov 09, 2018 14:42
[2018-11-09] MEDS ORDERED: CATHETER FLUSH 10 ML SYR IV PRN (17:45)
[2018-11-09] MEDS: ATORVASTATIN 80 MG (LIPITOR) TABLET PO SCH (22:01)
[2018-11-09] MEDS: CATHETER FLUSH 10 ML SYR IV SCH (22:02)
[2018-11-10] VITALS (7 sets, daily range): BP systolic 69–102; BP diastolic 49–60
[2018-11-10] MEDS: CEFEPIME INJECTION 1,000 MG in WATER (STERILE) FOR INJECTION 10 ML IV SCH ×2 (00:51→07:21)
--- NOTE | 2018-11-10 07:37 | Pulmonary Progress Note ---
Subjective Time Seen by a Provider: 11:12 Subjective/Events-last exam is angry I ordered IVF yesterday for hypotension and worsening metabolic acidosis. I attempted to explain to her why that is important however she does not seem to want to listen to my explanations. Sepsis Event Evaluation Height, Weight, BMI Height: 5'8.00" Weight: 181lbs. 5.0oz. 82.370404lo; 26.5 BMI Method: Focused Exam Lactate Level 11/08/18 07:41: Lactic Acid Level 1.08 11/09/18 07:28: Lactic Acid Level 0.77 Exam Exam Vital Signs Date Time Temp Pulse Resp B/P (MAP) Pulse Ox O2 Delivery O2 Flow Rate FiO2 11/10/18 03:17 99.2 98 18 69/49 (56) 93 Room Air 11/10/18 01:00 93 11/09/18 23:47 100.1 99 20 76/49 (58) 90 Room Air 11/09/18 21:00 93 Room Air 11/09/18 19:35 99.2 114 18 103/71 (82) 93 Room Air 11/09/18 19:03 109 11/09/18 15:50 99.0 105 18 95/58 (70) 99 Room Air 11/09/18 12:28 108 11/09/18 12:00 99.0 114 18 94/61 (72) 93 Room Air 11/09/18 10:00 98.6 20 93/60 (71) 93 Room Air 11/09/18 09:00 90/56 (67) 11/09/18 09:00 93 Room Air 11/09/18 08:00 100.2 92 18 96/58 (71) 93 Room Air I & O 11/10/18 07:00 Intake Total 1910 ml Output Total 1015 ml Balance 895 ml Height & Weight Height: 5'8.00" Weight: 181lbs. 5.0oz. 82.542388ig; 26.5 BMI Method: General Appearance: No Apparent Distress, WD/WN Neck: Normal Inspection; No JVD Respiratory: Lungs Clear, Normal Breath Sounds, No Accessory Muscle Use, No Respiratory Distress Cardiovascular: Regular Rate, Rhythm, No Edema Capillary Refill: Less Than 3 Seconds Gastrointestinal: normal bowel sounds, non tender, soft Extremity: Normal Inspection, No Pedal Edema Neurologic/Psychiatric: Alert, Oriented x3, Normal Mood/Affect Results Lab Laboratory Tests 11/09/18 03:20 Assessment/Plan Assessment/Plan CHFAE EF 10% -cardiology following -Plavix -Life vest Pneumonia with sepsis -Change Cefepime to merrem. PT is allergic to PCN -repeat marquez cultures and CXR pending -Oxygen and monitor -IS -Start Duoneb Q4 secondary to coughing Hypotension and metabolic acidosis -LA is normal however bicarb on chem is lower and gap is 12. I am going to repeat LA this AM -Pt's is angry about us giving fluids yesterday. Fluids were given secondary to worsening acidosis and hypotension. IVF now SL. I have discussed pt in depth with Dr. Beverly and Dr. Clarke. -Will defer IVF and hypotension management to cardiology. CAD with recent 6 stents placement at [place] -Cardiology following Probable ARASH -out pt testing Hyponatremia -Monitor TONO LOMBARDO DO Nov 10, 2018 07:37
[2018-11-10] MEDS: CATHETER FLUSH 10 ML SYR IV SCH ×3 (08:02→21:28)
[2018-11-10] MEDS: BENZONATATE 100 MG (TESSALON) CAPSULE PO SCH ×3 (08:35→21:22)
[2018-11-10] MEDS: SPIRONOLACTONE 25 MG (ALDACTONE) TAB PO SCH (08:35)
[2018-11-10] MEDS: SACUBITRIL/VALSARTAN 24/26 MG (ENTRESTO) TABLET PO SCH ×2 (08:35→21:22)
[2018-11-10] MEDS: TICAGRELOR 90 MG TABLET (BRILINTA) PO SCH ×2 (08:35→21:22)
[2018-11-10] MEDS: AMIODARONE 200 MG (CORDARONE) TAB PO SCH (08:35)
[2018-11-10] MEDS: FUROSEMIDE 40 MG (LASIX) TAB PO SCH (08:35)
[2018-11-10] MEDS: ASPIRIN 81 MG CHEW (CHILDREN'S ASA) PO SCH (08:35)
[2018-11-10] MEDS: CARVEDILOL 3.125 MG (COREG) TABLET PO SCH ×2 (08:35→21:28)
[2018-11-10] MEDS: MEROPENEM 1,000 MG in WATER (STERILE) FOR INJECTION 20 ML IV SCH ×2 (08:47→17:55)
--- NOTE | 2018-11-10 10:10 | Progress Note-Cardiology ---
Cardiology SOAP Progress Note Subjective: No new symptoms Gen malaise "I'm here," he says when asked how he feels No cp or palp or syncope Objective: I&O/Vital Signs 11/09/18 11/10/18 11/10/18 11/10/18 23:47 01:00 03:17 07:06 Temp 100.1 99.2 Pulse 99 93 98 102 Resp 20 18 B/P (MAP) 76/49 (58) 69/49 (56) Pulse Ox 90 93 O2 Delivery Room Air Room Air 11/10/18 08:00 Temp 98.6 Pulse 93 Resp 18 B/P (MAP) 92/58 (69) Pulse Ox 93 O2 Delivery Room Air 11/10/18 00:00 Intake Total 910 ml Output Total 1015 ml Balance -105 ml Weight (Pounds): 181 Weight (Ounces): 5.0 Weight (Calculated Kilograms): 82.347895 Constitutional: AAO x 3, well-developed, well-nourished Respiratory: lungs clear to auscultation Cardiovascular: regular rate-rhythm, JVD, S1 and S2, systolic murmur (2/6 HSM at card apex) Gastrointestional: No tender; soft, distended, audible bowel sounds Extremities: no lower extremity edema bilateral Neurologic/Psychiatric: grossly intact, power is 5/5 both on sides Skin: rash (diffuse dark bruising to abdomen; left groin with mild bruising); No rash on exposed areas, No ulcerations on exposed areas Results/Procedures: Labs Laboratory Tests 11/10/18 08:55: Lactic Acid Level 0.80 Microbiology 11/08/18 Blood Culture - Preliminary, Resulted No growth 11/08/18 Gram Stain - Final, Resulted 11/08/18 Sputum Culture - Preliminary, Resulted Usual upper respiratory ant 11/08/18 Urine Culture - Final, Complete NO GROWTH Laboratory Tests 11/09/18 03:20 A/P: Assessment: Pneumonia, managed by the Hospitalist Service Acute on chronic systolic CHF due to ischemic cardiomyopathy - clinically improved CAD - cardiac cath at [facility] on - per stent cards - s/p Promus premier 2.75 x 16 mm stent to the LAD; Synergy 3.00 x 8 mm stent to circ; Synergy 3.00 x 16 mm stent to the P. circ; Synergy 2.50 x 32 mm stent to RCA, Promus Premier 2.00 x 38 mm stent to RCA and another Promus Premier 3.00 mm x 38 mm stent to the RCA - stenting done by Dr. Odonnell at [facility] ICM - LVEF 10-15% on echo of October 04, 2018. Echo of 11/04/18: LVEF 10%, no significant pericard eff, mod cardiomegaly, mod to sev MR, mod TR, RVSP 25 mmHg Frequent PVCs, isolated and coupled ?ARASH ( has noted some signs of ARASH) Hyponatremia: SIADH (due to pneumonia) vs spironolactone therapy Family h/o CAD - father [place] in his late 50's Plan: * Complex management * I discussed his case with Dr Ramriez on the phone today * We have reduced spironolactone * Repeat labs * Ok for d/c from cardiac standpoint when stable from pneumonia standpoint * Close outpt f/u advised with his room service supervisor and pcp WON FRIEDMAN MD FACP FAC CCDS Nov 10, 2018 10:10
[2018-11-10] MEDS: RT-ALBUTEROL/IPRATROPIUM 3 ML (DUONEB) VIAL INH SCH ×4 (10:47→23:01)
[2018-11-10] MEDS: ENOXAPARIN 30 MG/0.3 ML (LOVENOX) SYR SC SCH (11:08)
[2018-11-10 11:54] LABS: BASOPHILS % (AUTO) 0 % (0-10); EOSINOPHILS % (AUTO) 0 % (0-10); HEMATOCRIT 41 % (40-54); HEMOGLOBIN 13.6 G/DL (13.3-17.7); LYMPHOCYTES # (AUTO) 1.2 X 10^3 (1.0-4.0); LYMPHOCYTES % (AUTO) 7 % (12-44); MEAN CORPUSCULAR HEMOGLOBIN 29 PG (25-34); MEAN CORPUSCULAR HGB CONC 34 G/DL (32-36); MEAN CORPUSCULAR VOLUME 85 FL (80-99); MEAN PLATELET VOLUME 11.6 FL (7.4-10.4); MONOCYTES # (AUTO) 2.3 X 10^3 (0.0-1.0); MONOCYTES % (AUTO) 14 % (0-12); NEUTROPHILS # (AUTO) 12.9 X 10^3 (1.8-7.8); NEUTROPHILS % (AUTO) 78 % (42-75); PLATELET COUNT 202 10^3/uL (130-400); RED CELL DISTRIBUTION WIDTH 14.4 % (10.0-14.5); WHITE BLOOD COUNT 16.5 10^3/uL (4.3-11.0)
[2018-11-10 12:17] LABS: CALCIUM 8.8 MG/DL (8.5-10.1); CREATININE SERUM 1.28 MG/DL (0.60-1.30); MAGNESIUM 1.7 MG/DL (1.8-2.4); POTASSIUM 3.9 MMOL/L (3.6-5.0)
--- NOTE | 2018-11-10 12:23 | Diagnostic Imaging Report ---
INDICATION: Pneumonia. COMPARISON: 11/08/2018. FINDINGS: There is progressive airspace disease in the right lower lobe laterally with adjacent pleural fluid that may be also mildly increased. The left lung is clear. IMPRESSION: Increased right basilar infiltrate and subjacent pleural fluid. Dictated by: Dictated on workstation # [id number]
[2018-11-10] MEDS: ATORVASTATIN 80 MG (LIPITOR) TABLET PO SCH (21:22)
[2018-11-11] MEDS: MEROPENEM 1,000 MG in WATER (STERILE) FOR INJECTION 20 ML IV SCH ×3 (01:05→17:17)
[2018-11-11] MEDS: RT-ALBUTEROL/IPRATROPIUM 3 ML (DUONEB) VIAL INH SCH ×5 (02:31→18:13)
[2018-11-11 03:32] VITALS: BP 86/52
[2018-11-11] MEDS: CATHETER FLUSH 10 ML SYR IV SCH ×3 (05:13→21:10)
[2018-11-11 08:00] VITALS: BP 90/55
[2018-11-11] MEDS: SACUBITRIL/VALSARTAN 24/26 MG (ENTRESTO) TABLET PO SCH ×2 (08:12→21:09)
[2018-11-11] MEDS: AMIODARONE 200 MG (CORDARONE) TAB PO SCH (08:12)
[2018-11-11] MEDS: BENZONATATE 100 MG (TESSALON) CAPSULE PO SCH ×3 (08:12→21:09)
[2018-11-11] MEDS: FUROSEMIDE 40 MG (LASIX) TAB PO SCH (08:12)
[2018-11-11] MEDS: ASPIRIN 81 MG CHEW (CHILDREN'S ASA) PO SCH (08:12)
[2018-11-11] MEDS: TICAGRELOR 90 MG TABLET (BRILINTA) PO SCH ×2 (08:12→21:09)
[2018-11-11] MEDS: CARVEDILOL 3.125 MG (COREG) TABLET PO SCH ×2 (08:12→21:09)
--- NOTE | 2018-11-11 09:13 | Pulmonary Progress Note ---
Subjective Time Seen by a Provider: 09:08 Subjective/Events-last exam Pt states cough is improved however he's coughing up small amounts of blood Sepsis Event Evaluation Height, Weight, BMI Height: 5'8.00" Weight: 180lbs. 6.0oz. 81.823164yn; 26.5 BMI Method: Focused Exam Lactate Level 11/09/18 07:28: Lactic Acid Level 0.77 11/10/18 08:55: Lactic Acid Level 0.80 Exam Exam Vital Signs Date Time Temp Pulse Resp B/P (MAP) Pulse Ox O2 Delivery O2 Flow Rate FiO2 11/11/18 07:10 94 11/11/18 06:46 93 Room Air 11/11/18 03:32 98.6 76 20 86/52 (63) 94 Room Air 11/11/18 02:31 92 Room Air 11/11/18 01:00 93 11/10/18 23:50 98.8 92 18 90/50 (63) 91 Room Air 11/10/18 23:01 91 Room Air 11/10/18 21:15 99.0 88 102/60 (74) 11/10/18 21:00 Room Air 11/10/18 19:35 100.1 100 20 90/53 (65) 94 Room Air 11/10/18 19:21 91 Room Air 11/10/18 19:00 105 11/10/18 16:25 99.6 106 20 94/59 (71) 95 Room Air 11/10/18 15:06 93 Room Air 11/10/18 12:50 87 11/10/18 12:00 99.7 91 16 84/53 (63) 93 Room Air 11/10/18 10:50 92 Room Air I & O 11/11/18 07:00 Intake Total 1320 ml Output Total 1200 ml Balance 120 ml Height & Weight Height: 5'8.00" Weight: 180lbs. 6.0oz. 81.529286cc; 26.5 BMI Method: General Appearance: No Apparent Distress, WD/WN Neck: Normal Inspection; No JVD Respiratory: Lungs Clear, Normal Breath Sounds, No Accessory Muscle Use, No Respiratory Distress Cardiovascular: Regular Rate, Rhythm, No Edema Capillary Refill: Less Than 3 Seconds Gastrointestinal: normal bowel sounds, non tender, soft Extremity: Normal Inspection, No Pedal Edema Neurologic/Psychiatric: Alert, Oriented x3, Normal Mood/Affect Results Lab Laboratory Tests 11/10/18 11:46 Assessment/Plan Assessment/Plan CHFAE EF 10% -cardiology following -Plavix -Life vest Pneumonia with sepsis Continue merrem. PT is allergic to PCN -repeat marquez cultures and CXR pending -Oxygen and monitor -IS -Start Duoneb Q4 secondary to coughing Hemoptysis - small amount most likely from coughing and antiplatelet therapy -Pt is a never smoker -Continue to monitor -Hb is stable Hypotension and metabolic acidosis -LA is normal however bicarb on chem is lower and gap is 12. I am going to repeat LA this AM -Pt's is angry about us giving fluids yesterday. Fluids were given secondary to worsening acidosis and hypotension. IVF now SL. I have discussed pt in depth with Dr. Beverly and Dr. Clarke. -Will defer IVF and hypotension management to cardiology. CAD with recent 6 stents placement at [facility] -Cardiology following Probable ARASH -out pt testing Hyponatremia -Monitor TONO LOMBARDO DO Nov 11, 2018 09:13
[2018-11-11 10:29] LABS: BASOPHILS % (AUTO) 0 % (0-10); EOSINOPHILS # (AUTO) 0.1 10^3/uL (0.0-0.3); EOSINOPHILS % (AUTO) 1 % (0-10); HEMATOCRIT 38 % (40-54); HEMOGLOBIN 12.6 G/DL (13.3-17.7); LYMPHOCYTES # (AUTO) 0.9 X 10^3 (1.0-4.0); LYMPHOCYTES % (AUTO) 7 % (12-44); MEAN CORPUSCULAR HEMOGLOBIN 28 PG (25-34); MEAN CORPUSCULAR HGB CONC 34 G/DL (32-36); MEAN CORPUSCULAR VOLUME 85 FL (80-99); MEAN PLATELET VOLUME 11.2 FL (7.4-10.4); MONOCYTES # (AUTO) 1.9 X 10^3 (0.0-1.0); MONOCYTES % (AUTO) 14 % (0-12); NEUTROPHILS # (AUTO) 10.6 X 10^3 (1.8-7.8); NEUTROPHILS % (AUTO) 79 % (42-75); PLATELET COUNT 233 10^3/uL (130-400); RED CELL DISTRIBUTION WIDTH 14.8 % (10.0-14.5); WHITE BLOOD COUNT 13.5 10^3/uL (4.3-11.0)
[2018-11-11 11:02] LABS: CALCIUM 8.5 MG/DL (8.5-10.1); CREATININE SERUM 1.86 MG/DL (0.60-1.30); MAGNESIUM 1.9 MG/DL (1.8-2.4); PHOSPHORUS 3.1 MG/DL (2.3-4.7); POTASSIUM 3.5 MMOL/L (3.6-5.0)
[2018-11-11] MEDS: ENOXAPARIN 30 MG/0.3 ML (LOVENOX) SYR SC SCH (11:35)
[2018-11-11 12:00] VITALS: BP 97/59
--- NOTE | 2018-11-11 14:14 | Progress Note-Cardiology ---
Cardiology SOAP Progress Note Subjective: No cp or palp or syncope Shortness of breath better (compared to time of admission) Coughing up phlegm, sometimes a little blood tinged Objective: I&O/Vital Signs 11/11/18 11/11/18 11/11/18 11/11/18 02:31 03:32 06:46 07:10 Temp 98.6 Pulse 76 94 Resp 20 B/P (MAP) 86/52 (63) Pulse Ox 92 94 93 O2 Delivery Room Air Room Air Room Air 11/11/18 11/11/18 11/11/18 08:00 11:07 12:00 Temp 98.7 97.7 Pulse 74 91 Resp 20 20 B/P (MAP) 90/55 (67) 97/59 (72) Pulse Ox 93 94 95 O2 Delivery Room Air Room Air Room Air 11/10/18 23:59 Intake Total 1020 ml Output Total 825 ml Balance 195 ml Weight (Pounds): 180 Weight (Ounces): 6.0 Weight (Calculated Kilograms): 81.481075 Constitutional: AAO x 3, well-developed, well-nourished Respiratory: lungs clear to auscultation Cardiovascular: regular rate-rhythm, JVD, S1 and S2, systolic murmur (2/6 HSM at card apex) Gastrointestional: No tender; soft, distended, audible bowel sounds Extremities: no lower extremity edema bilateral Neurologic/Psychiatric: grossly intact, power is 5/5 both on sides Skin: rash (diffuse dark bruising to abdomen; left groin with mild bruising); No rash on exposed areas, No ulcerations on exposed areas Results/Procedures: Labs Laboratory Tests 11/11/18 10:21: White Blood Count 13.5H, Red Blood Count 4.45, Hemoglobin 12.6L, Hematocrit 38L, Mean Corpuscular Volume 85, Mean Corpuscular Hemoglobin 28, Mean Corpuscular Hemoglobin Concent 34, Red Cell Distribution Width 14.8H, Platelet Count 233, Mean Platelet Volume 11.2H, Neutrophils (%) (Auto) 79H, Lymphocytes (%) (Auto) 7L, Monocytes (%) (Auto) 14H, Eosinophils (%) (Auto) 1, Basophils (%) (Auto) 0, Neutrophils # (Auto) 10.6H, Lymphocytes # (Auto) 0.9L, Monocytes # (Auto) 1.9H, Eosinophils # (Auto) 0.1, Basophils # (Auto) 0.0, Sodium Level 128L, Potassium Level 3.5L, Chloride Level 99, Carbon Dioxide Level 18L, Anion Gap 11, Blood Urea Nitrogen 27H, Creatinine 1.86H, Estimat Glomerular Filtration Rate 38, BUN/Creatinine Ratio 15, Glucose Level 118H, Calcium Level 8.5, Phosphorus Level 3.1, Magnesium Level 1.9 Microbiology 11/08/18 Blood Culture - Preliminary, Resulted No growth 11/08/18 Gram Stain - Final, Complete 11/08/18 Sputum Culture - Final, Complete Usual upper respiratory ant 11/08/18 Urine Culture - Final, Complete NO GROWTH A/P: Assessment: Pneumonia and mild hemoptysis, managed by the Hospitalist Service Acute on chronic systolic CHF due to ischemic cardiomyopathy - clinically improved CAD - cardiac cath at [facility] on - per stent cards - s/p Promus premier 2.75 x 16 mm stent to the LAD; Synergy 3.00 x 8 mm stent to circ; Synergy 3.00 x 16 mm stent to the P. circ; Synergy 2.50 x 32 mm stent to RCA, Promus Premier 2.00 x 38 mm stent to RCA and another Promus Premier 3.00 mm x 38 mm stent to the RCA - stenting done by Dr. Odonnell at [facility] ICM - LVEF 10-15% on echo of October 04, 2018. Echo of 11/04/18: LVEF 10%, no significant pericard eff, mod cardiomegaly, mod to sev MR, mod TR, RVSP 25 mmHg Frequent PVCs, isolated and coupled ?ARASH ( has noted some signs of ARASH) Hyponatremia: SIADH (due to pneumonia) vs spironolactone therapy Family h/o CAD - father ID in his late 50's Plan: * Complex management * I again discussed his case with Dr Ramirez on the phone today * Not ready for d/c yet, given pneumonia and mild hemoptysis * Continue DAPT, given multiple cor stents recently at [facility] * Dr Barcenas covering card svce over the weekend WON FRIEDMAN MD [facility] CCDS Nov 11, 2018 14:14
[2018-11-11 17:00] VITALS: BP 93/60
[2018-11-11] MEDS: MAGNESIUM OXIDE (MAG-OX)400 MG TAB PO SCH (17:22)
[2018-11-11 21:00] VITALS: BP 96/62
[2018-11-11] MEDS: ATORVASTATIN 80 MG (LIPITOR) TABLET PO SCH (21:09)
--- NOTE | 2018-11-11 21:30 | NUR ---
COREG NON-ADMINISTERED AT 2100 DUE TO LOW BLOOD PRESSURE OF 88/56.
[2018-11-12] VITALS: BP 97/58
[2018-11-12] MEDS: MEROPENEM 1,000 MG in WATER (STERILE) FOR INJECTION 20 ML IV SCH ×3 (00:36→17:22)
[2018-11-12 04:39] VITALS: BP 86/55
[2018-11-12 05:30] LABS: BASOPHILS % (AUTO) 0 % (0-10); EOSINOPHILS # (AUTO) 0.3 10^3/uL (0.0-0.3); EOSINOPHILS % (AUTO) 3 % (0-10); HEMATOCRIT 36 % (40-54); HEMOGLOBIN 12.1 G/DL (13.3-17.7); LYMPHOCYTES # (AUTO) 1.2 X 10^3 (1.0-4.0); LYMPHOCYTES % (AUTO) 10 % (12-44); MEAN CORPUSCULAR HEMOGLOBIN 28 PG (25-34); MEAN CORPUSCULAR HGB CONC 34 G/DL (32-36); MEAN CORPUSCULAR VOLUME 83 FL (80-99); MEAN PLATELET VOLUME 11.1 FL (7.4-10.4); MONOCYTES % (AUTO) 17 % (0-12); NEUTROPHILS # (AUTO) 8.2 X 10^3 (1.8-7.8); NEUTROPHILS % (AUTO) 70 % (42-75); PLATELET COUNT 215 10^3/uL (130-400); RED CELL DISTRIBUTION WIDTH 14.5 % (10.0-14.5); WHITE BLOOD COUNT 11.7 10^3/uL (4.3-11.0)
[2018-11-12 05:46] LABS: CALCIUM 8.4 MG/DL (8.5-10.1); CREATININE SERUM 2.09 MG/DL (0.60-1.30); MAGNESIUM 1.9 MG/DL (1.8-2.4); POTASSIUM 3.4 MMOL/L (3.6-5.0)
[2018-11-12] MEDS: CATHETER FLUSH 10 ML SYR IV SCH ×3 (06:09→20:25)
[2018-11-12] MEDS: FUROSEMIDE 20 MG (LASIX) TAB PO SCH (06:09)
[2018-11-12] MEDS: RT-ALBUTEROL/IPRATROPIUM 3 ML (DUONEB) VIAL INH SCH ×4 (07:26→19:10)
[2018-11-12] MEDS: SACUBITRIL/VALSARTAN 24/26 MG (ENTRESTO) TABLET PO SCH ×2 (07:59→20:24)
[2018-11-12] MEDS: AMIODARONE 200 MG (CORDARONE) TAB PO SCH (07:59)
[2018-11-12 08:00] VITALS: BP 102/64
[2018-11-12] MEDS: TICAGRELOR 90 MG TABLET (BRILINTA) PO SCH ×2 (08:00→20:24)
[2018-11-12] MEDS: CARVEDILOL 3.125 MG (COREG) TABLET PO SCH ×3 (08:00→21:08)
[2018-11-12] MEDS: ASPIRIN 81 MG CHEW (CHILDREN'S ASA) PO SCH (08:00)
[2018-11-12] MEDS: SPIRONOLACTONE 25 MG (ALDACTONE) TAB PO SCH (08:00)
[2018-11-12] MEDS: BENZONATATE 100 MG (TESSALON) CAPSULE PO SCH ×3 (08:00→20:24)
[2018-11-12] MEDS: MAGNESIUM OXIDE (MAG-OX)400 MG TAB PO SCH ×2 (08:02→18:24)
[2018-11-12] MEDS ORDERED: FUROSEMIDE 40 MG (LASIX) TAB PO SCH (09:00)
[2018-11-12] MEDS: ENOXAPARIN 30 MG/0.3 ML (LOVENOX) SYR SC SCH (09:44)
--- NOTE | 2018-11-12 10:39 | Cardiology Progress Note ---
Subjective Date Seen by Provider: Nov 12, 2018 Time Seen by Provider: 10:36 Subjective/Events-last exam patient is sitting in a chair, feeling better, no new complaint, no chest pain Review of Systems General: No Chills, No Night Sweats, No Fatigue, No Malaise, No Appetite, No Other HEENT: No Head Aches, No Visual Changes, No Eye Pain, No Ear Pain, No Dysphasia, No Sinus Congestion, No Post Nasal Drip, No Sore Throat, No Other Pulmonary: Dyspnea; No Cough, No Pleuritic Chest Pain, No Other Cardiovascular: No: Chest Pain, Palpitations, Orthopnea, Paroxysmal Noc. Dyspnea, Edema, Lt Headedness, Other Focused Exam Lactate Level 11/10/18 08:55: Lactic Acid Level 0.80 Objective-Cardiology Exam Last Set of Vital Signs Vital Signs 11/08/18 11/12/18 21:00 08:00 Temp 97.7 Pulse 87 Resp 18 B/P (MAP) 102/64 (77) Pulse Ox 97 O2 Delivery Room Air O2 Flow Rate 2.00 Capillary Refill : Less Than 3 SecondsLess Than 3 Seconds I&O Intake and Output 11/12/18 00:00 Intake Total 1300 ml Output Total 1075 ml Balance 225 ml Intake Oral 1300 ml Output Urine Total 1075 ml # Bowel Movements 1 General: Alert, Oriented X3, Cooperative HEENT: Atraumatic, PERRLA Neck: Supple, No JVD, No Thyromegaly Lungs: Clear to Auscultation, Normal Air Movement Heart: Regular Rate, Normal S1, Normal S2, No Murmurs Abdomen: Normal Bowel Sounds, Soft, No Tenderness, No Hepatosplenomegaly, No Masses Extremities: No Clubbing, No Cyanosis, No Edema, Normal Pulses, No Tenderness/Swelling Skin: No Rashes, No Breakdown, No Significant Lesion Neuro: Normal Gait, Normal Speech, Strength at 5/5 X4 Ext, Normal Tone, Sensation Intact Psych/Mental Status: Mental Status NL, Mood NL Results Lab Laboratory Tests 11/12/18 05:01 A/P-Cardiology Admission Diagnosis Pneumonia Congestive heart failure, acute on chronic left ventricular systolic dysfunction, ischemic cardiomyopathy Coronary artery disease Hemoptysis Assessment/Plan Pneumonia, still having mild hemoptysis, managed by primary care team. Congestive heart failure, acute on chronic left ventricular systolic dysfunction, ischemic cardiomyopathy, clinically stable, reporting some weight gain today. Continue to monitor daily weight Coronary artery disease, extensive disease, continue to monitor History of frequent premature ventricular contractions, clinically stable. Continue to monitor Family history of coronary artery disease Clinical Quality Measures DVT/VTE Risk/Contraindication: Risk Factor Score Per Nursin RFS Level Per Nursing on Admit: 4+=Very High ANA MANCUSO MD Nov 12, 2018 10:39
[2018-11-12 12:00] VITALS: BP 85/46
[2018-11-12 15:52] VITALS: BP 98/57
[2018-11-12 19:31] VITALS: BP_SYST 64; BP_SYST 94; BP_DIAS 68
[2018-11-12] MEDS: ATORVASTATIN 80 MG (LIPITOR) TABLET PO SCH (20:24)
[2018-11-12] MEDS: ACETAMINOPHEN 325 MG TABLET PO PRN (20:40)
[2018-11-13] VITALS: BP 93/56
[2018-11-13] MEDS: MEROPENEM 1,000 MG in WATER (STERILE) FOR INJECTION 20 ML IV SCH ×3 (00:47→16:27)
[2018-11-13 04:00] VITALS: BP 97/61
[2018-11-13 05:25] LABS: BASOPHILS % (AUTO) 0 % (0-10); EOSINOPHILS # (AUTO) 0.6 10^3/uL (0.0-0.3); EOSINOPHILS % (AUTO) 6 % (0-10); HEMATOCRIT 36 % (40-54); HEMOGLOBIN 12.1 G/DL (13.3-17.7); LYMPHOCYTES # (AUTO) 1.1 X 10^3 (1.0-4.0); LYMPHOCYTES % (AUTO) 11 % (12-44); MEAN CORPUSCULAR HEMOGLOBIN 28 PG (25-34); MEAN CORPUSCULAR HGB CONC 34 G/DL (32-36); MEAN CORPUSCULAR VOLUME 83 FL (80-99); MEAN PLATELET VOLUME 10.6 FL (7.4-10.4); MONOCYTES # (AUTO) 1.8 X 10^3 (0.0-1.0); MONOCYTES % (AUTO) 17 % (0-12); NEUTROPHILS # (AUTO) 6.8 X 10^3 (1.8-7.8); NEUTROPHILS % (AUTO) 66 % (42-75); PLATELET COUNT 267 10^3/uL (130-400); RED CELL DISTRIBUTION WIDTH 14.8 % (10.0-14.5); WHITE BLOOD COUNT 10.3 10^3/uL (4.3-11.0)
[2018-11-13 05:41] LABS: CALCIUM 8.6 MG/DL (8.5-10.1); CREATININE SERUM 2.04 MG/DL (0.60-1.30); PHOSPHORUS 3.5 MG/DL (2.3-4.7); POTASSIUM 3.3 MMOL/L (3.6-5.0)
[2018-11-13] MEDS ORDERED: KCL 20 MEQ TAB (K-DUR) PO ONE (06:00)
--- NOTE | 2018-11-13 06:01 | Pulmonary Progress Note ---
Subjective Time Seen by a Provider: 08:08 Subjective/Events-last exam Hemoptysis is improving. PT is on RA Sepsis Event Evaluation Height, Weight, BMI Height: 5'8.00" Weight: 183lbs. 7.7oz. 83.882969xm; 26.5 BMI Method: Focused Exam Lactate Level 11/10/18 08:55: Lactic Acid Level 0.80 Exam Exam Vital Signs Date Time Temp Pulse Resp B/P (MAP) Pulse Ox O2 Delivery O2 Flow Rate FiO2 11/13/18 04:00 97.8 96 18 97/61 (73) 93 Room Air 11/13/18 01:00 86 11/13/18 00:00 97.6 95 16 93/56 (68) 93 Room Air 11/12/18 22:27 98.5 11/12/18 21:00 Room Air 11/12/18 20:40 99.4 11/12/18 19:31 99.4 90 18 94/68 (77) 97 Room Air 11/12/18 19:10 93 Room Air 11/12/18 19:00 90 11/12/18 15:52 99.2 79 16 98/57 (71) 98 Room Air 11/12/18 14:19 95 Room Air 11/12/18 13:00 87 11/12/18 12:00 97.9 74 18 85/46 (59) 96 Room Air 11/12/18 10:40 95 Room Air 11/12/18 09:00 Room Air 11/12/18 08:00 97.7 87 18 102/64 (77) 97 Room Air 11/12/18 07:27 95 Room Air 11/12/18 07:00 85 I & O 11/13/18 07:00 Intake Total 1640 ml Output Total 400 ml Balance 1240 ml Height & Weight Height: 5'8.00" Weight: 183lbs. 7.7oz. 83.120755dj; 26.5 BMI Method: General Appearance: No Apparent Distress, WD/WN Neck: Normal Inspection; No JVD Respiratory: Lungs Clear, Normal Breath Sounds, No Accessory Muscle Use, No Respiratory Distress Cardiovascular: Regular Rate, Rhythm, No Edema Capillary Refill: Less Than 3 Seconds Gastrointestinal: normal bowel sounds, non tender, soft Extremity: Normal Inspection, No Pedal Edema Neurologic/Psychiatric: Alert, Oriented x3, Normal Mood/Affect Skin: Normal Color, Warm/Dry Results Lab Laboratory Tests 11/11/18 10:21 11/12/18 05:01 11/13/18 05:05 11/13/18 05:15 Assessment/Plan Assessment/Plan CHFAE EF 10% -cardiology following -Plavix -Life vest Pneumonia with sepsis -Repeat CXR today Continue merrem. PT is allergic to PCN -repeat marquez cultures and CXR pending -Oxygen and monitor -IS -Duoneb QID Hemoptysis - small amount most likely from coughing and antiplatelet therapy - improving -Pt is a never smoker -Continue to monitor -Hb is stable Hypokalemia -replace CAD with recent 6 stents placement at [facility] -Cardiology following Probable ARASH -out pt testing Hyponatremia -Monitor TONO LOMBARDO DO Nov 13, 2018 06:01
[2018-11-13] MEDS: FUROSEMIDE 20 MG (LASIX) TAB PO SCH (06:05)
[2018-11-13] MEDS: CATHETER FLUSH 10 ML SYR IV SCH ×3 (06:05→22:00)
[2018-11-13] MEDS: RT-ALBUTEROL/IPRATROPIUM 3 ML (DUONEB) VIAL INH SCH ×4 (06:46→18:59)
[2018-11-13 08:00] VITALS: BP 98/63
[2018-11-13] MEDS: MAGNESIUM OXIDE (MAG-OX)400 MG TAB PO SCH (08:20)
[2018-11-13] MEDS: TICAGRELOR 90 MG TABLET (BRILINTA) PO SCH ×2 (08:20→21:38)
[2018-11-13] MEDS: SACUBITRIL/VALSARTAN 24/26 MG (ENTRESTO) TABLET PO SCH ×2 (08:20→21:38)
[2018-11-13] MEDS: AMIODARONE 200 MG (CORDARONE) TAB PO SCH (08:21)
[2018-11-13] MEDS: BENZONATATE 100 MG (TESSALON) CAPSULE PO SCH ×3 (08:21→21:38)
[2018-11-13] MEDS: CARVEDILOL 3.125 MG (COREG) TABLET PO SCH ×2 (08:21→21:39)
[2018-11-13] MEDS: ASPIRIN 81 MG CHEW (CHILDREN'S ASA) PO SCH (08:21)
--- NOTE | 2018-11-13 09:19 | Diagnostic Imaging Report ---
Indication: Pneumonia PA and lateral views of the chest are obtained with comparison made to study of 11/10/2018. Similar to the previous study there is focal airspace disease in the right lung base, laterally. Otherwise the lungs reveal mild hyperexpansion. There maybe mild left parahilar atelectasis and/or pneumonitis as well. There is no evidence of pneumothorax. Impression: Persistent right basilar infiltrate compatible with pneumonia. Given the peripheral location, possibility of pulmonary infarct is not excluded. There is probable mild left parahilar atelectasis and/or pneumonitis. Dictated by: Dictated on workstation # [id number]
--- NOTE | 2018-11-13 11:46 | Cardiology Progress Note ---
Subjective Date Seen by Provider: Nov 13, 2018 Time Seen by Provider: 11:43 Subjective/Events-last exam patient is sitting in a chair, feeling better, still having some cough with hemoptysis on and off. No chest pain. Review of Systems General: No Chills, No Night Sweats, No Fatigue, No Malaise, No Appetite, No Other HEENT: No Head Aches, No Visual Changes, No Eye Pain, No Ear Pain, No Dysphasia, No Sinus Congestion, No Post Nasal Drip, No Sore Throat, No Other Pulmonary: Dyspnea, Cough; No Pleuritic Chest Pain, No Other Cardiovascular: No: Chest Pain, Palpitations, Orthopnea, Paroxysmal Noc. Dyspnea, Edema, Lt Headedness, Other Objective-Cardiology Exam Last Set of Vital Signs Vital Signs 11/08/18 11/13/18 11/13/18 21:00 08:00 10:09 Temp 98.1 Pulse 68 Resp 18 B/P (MAP) 98/63 (75) Pulse Ox 97 O2 Delivery Room Air O2 Flow Rate 2.00 Capillary Refill : Less Than 3 SecondsLess Than 3 Seconds I&O Intake and Output 11/13/18 00:00 Intake Total 1500 ml Output Total 475 ml Balance 1025 ml Intake Oral 1500 ml Output Urine Total 475 ml # Voids 6 # Bowel Movements 1 General: Alert, Oriented X3, Cooperative HEENT: Atraumatic, PERRLA Neck: Supple, No JVD, No Thyromegaly Lungs: Normal Air Movement, Other Heart: Regular Rate, Normal S1, Normal S2, No Murmurs Abdomen: Normal Bowel Sounds, Soft, No Tenderness, No Hepatosplenomegaly, No Masses Extremities: No Clubbing, No Cyanosis, No Edema, Normal Pulses, No Tenderness/Swelling Skin: No Breakdown, No Significant Lesion, Other (superficial phlebitis) Neuro: Normal Gait, Normal Speech, Strength at 5/5 X4 Ext, Normal Tone, Sensation Intact Psych/Mental Status: Mental Status NL, Mood NL Results Lab Laboratory Tests 11/13/18 05:05 11/13/18 05:15 A/P-Cardiology Admission Diagnosis Pneumonia Congestive heart failure, acute on chronic left ventricular systolic dysfunction, ischemic cardiomyopathy Coronary artery disease Hemoptysis Assessment/Plan Pneumonia, still having mild hemoptysis, managed by primary care team. Congestive heart failure, acute on chronic left ventricular systolic dysfunction, ischemic cardiomyopathy, feeling better, exercising, we had a long discussion about the management plan, I recommended evaluation with a heart failure clinic at to maximize medical therapy. Continue on current treatment and monitor. Coronary artery disease, extensive disease, multiple interventions were done, follows with Dr. Odonnell and Dr. Colon as an outpatient. Acute on chronic renal insufficiency, continue to monitor renal function Hyponatremia, secondary to above. Continue to monitor electrolytes. History of frequent premature ventricular contractions, clinically stable. Continue to monitor Family history of coronary artery disease Clinical Quality Measures DVT/VTE Risk/Contraindication: Risk Factor Score Per Nursin RFS Level Per Nursing on Admit: 4+=Very High ANA MANCUSO MD Nov 13, 2018 11:46
[2018-11-13 12:00] VITALS: BP 76/55
--- NOTE | 2018-11-13 12:49 | Progress Note-Hospitalist ---
Subjective HPI/CC On Admission Date Seen by Provider: Nov 12, 2018 Time Seen by Provider: 13:30 Pt is a 58yoCM with a PMH of recently diagnosed CAD s/p 6 stents and CHF. He states that he has not been to a doctor in years until a few weeks ago when he developed SOB. He was diagnosed with "walking pneumonia" and "severe bronchitis" by an [employer] that he was seeing but was referred for an echo as well. 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 Ultimately he was admitted to [facility] in [place] and underwent cardiac cath x2 on 10/29 and 10/30 with 3 stents placed during both caths. He was discharged from the hospital there on 11/02. He continued to have shortness of breath and returned to an ER in [place], [place] for further evaluation. He was found to have an elevated BNP, oxygen requirement, and mildly elevated troponin. [place] was called for admission but was on diversion. He was thus admitted here for further evaluation and care. This morning he states his only complaint is shortness of breath. He denies lower extremity edema, chest pain, palpitations. He reports he has been compliant with his fluid and salt restriction as well as his medicines, including DAPT. His is at bedside with his medications and echo report from 10/14. Subjective/Events-last exam patient reports regarding been up in the halls twice a day with improving exercise tolerance and no chest discomfort. He is maintaining O2 saturations denies palpitations or lightheadedness reports his appetite is been fair although has been difficult to comply with 1500 cc fluid restriction. Objective Exam Vital Signs Vital Signs Date Time Temp Pulse Resp B/P (MAP) Pulse Ox O2 Delivery O2 Flow Rate FiO2 11/13/18 10:09 97 Room Air 11/13/18 08:00 98.1 68 18 98/63 (75) 11/08/18 21:00 2.00 Capillary Refill : Less Than 3 SecondsLess Than 3 Seconds General Appearance: No Apparent Distress, WD/WN Neck: Normal Inspection; No JVD Respiratory: Lungs Clear, Normal Breath Sounds, No Accessory Muscle Use, No Respiratory Distress Cardiovascular: Regular Rate, Rhythm, No Edema, Gallop/S3 Gastrointestinal: Normal Bowel Sounds, Non Tender, Soft; No Distended, No Guarding, No Rebound Extremity: Normal Inspection, No Pedal Edema Neurologic/Psychiatric: Alert, Oriented x3, Normal Mood/Affect Results/Procedures Lab Laboratory Tests 11/13/18 05:05 11/13/18 05:15 Patient resulted labs reviewed. Imaging: Reviewed Imaging Report Assessment/Plan Assessment and Plan Assess & Plan/Chief Complaint Probable Pneumonia although pulmonary infarction is in the differential jessi gnosis, still having mild hemoptysis considering the patient is now ambulatory for 5 times daily and is on dual antiplatelet therapy will discontinue Lovenox. Congestive heart failure, acute on chronic left ventricular systolic dysfunction, ischemic cardiomyopathy, feeling better with improved exercise capability. we discussed the balancing act of fluid management and questions as to why the patient had received fluid earlier when he was on by mouth fluid restriction. As hyponatremia is moderating will liberalize fluid restriction to 2000 L per day Coronary artery disease, extensive disease, multiple interventions were done, follows with Dr. Odonnell and Dr. Colon as an outpatient. Acute insufficiency secondary to hypotension considering his diffuse vascular disease cannot rule out the possibility of bilateral renal artery stenosis. His blood pressure is improving but if renal function continues to decline will need to DC Entresto after discussion with cardiology. Hyponatremia, secondary to above. Continue to monitor electrolytes. History of frequent premature ventricular contractions, clinically stable. Continue to monitor Family history of coronary artery disease Clinical Quality Measures DVT/VTE Risk/Contraindication: Risk Factor Score Per Nursin RFS Level Per Nursing on Admit: 4+=Very High ERNIE RILEY MD Nov 13, 2018 12:49
--- NOTE | 2018-11-13 12:56 | Progress Note-Hospitalist ---
Subjective HPI/CC On Admission Date Seen by Provider: Nov 13, 2018 Time Seen by Provider: 12:51 Pt is a 58yoCM with a PMH of recently diagnosed CAD s/p 6 stents and CHF. He states that he has not been to a doctor in years until a few weeks ago when he developed SOB. He was diagnosed with "walking pneumonia" and "severe bronchitis" by an [employer] that he was seeing but was referred for an echo as well. 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 Ultimately he was admitted to [facility] in [place] and underwent cardiac cath x2 on 10/29 and 10/30 with 3 stents placed during both caths. He was discharged from the hospital there on 11/02. He continued to have shortness of breath and returned to an ER in [place], [place] for further evaluation. He was found to have an elevated BNP, oxygen requirement, and mildly elevated troponin. [place] was called for admission but was on diversion. He was thus admitted here for further evaluation and care. This morning he states his only complaint is shortness of breath. He denies lower extremity edema, chest pain, palpitations. He reports he has been compliant with his fluid and salt restriction as well as his medicines, including DAPT. His is at bedside with his medications and echo report from 10/14. Subjective/Events-last exam patient reports ambulating 5 times yesterday with no lightheadedness increased walk the reported without any significant dyspnea on exertion and no chest discomfort. He's had no night sweats chills or fever still has some intermittent small volume hemoptysis without any reported purulent sputum production. Objective Exam Vital Signs Vital Signs Date Time Temp Pulse Resp B/P (MAP) Pulse Ox O2 Delivery O2 Flow Rate FiO2 11/13/18 10:09 97 Room Air 11/13/18 08:00 98.1 68 18 98/63 (75) 11/08/18 21:00 2.00 Capillary Refill : Less Than 3 SecondsLess Than 3 Seconds General Appearance: No Apparent Distress, WD/WN Neck: Normal Inspection; No JVD Respiratory: No Accessory Muscle Use, No Respiratory Distress, Other (a few rales in right base chest clear otherwise.) Cardiovascular: Regular Rate, Rhythm, No Edema, Gallop/S3 Gastrointestinal: Normal Bowel Sounds, Non Tender, Soft; No Distended, No Guarding, No Rebound Extremity: Normal Inspection, No Pedal Edema Neurologic/Psychiatric: Alert, Oriented x3, Normal Mood/Affect Results/Procedures Lab Laboratory Tests 11/13/18 05:05 11/13/18 05:15 Patient resulted labs reviewed. Imaging: Reviewed Imaging Report Assessment/Plan Assessment and Plan Assess & Plan/Chief Complaint Probable Pneumonia although pulmonary infarction is in the differential diagnosis, still having mild hemoptysis considering the patient is now ambulatory for 5 times daily and is on dual antiplatelet therapy Lovenox discontinued yesterday Congestive heart failure, acute on chronic left ventricular systolic dysfunction, ischemic cardiomyopathy, feeling better with improved exercise capability. Coronary artery disease, extensive disease, multiple interventions were done, follows with Dr. Odonnell and Dr. Colon as an outpatient. Acute insufficiency secondary to hypotension considering his diffuse vascular disease cannot rule out the possibility of bilateral renal artery stenosis. creatinine this morning was slightly lower at 2.04 continue to monitor no medication changes at this time. Hyponatremia, secondary to above stable. Continue to monitor electrolytes. History of frequent premature ventricular contractions, clinically stable. Continue to monitor Family history of coronary artery disease Clinical Quality Measures DVT/VTE Risk/Contraindication: Risk Factor Score Per Nursin RFS Level Per Nursing on Admit: 4+=Very High ERNIE RILEY MD Nov 13, 2018 12:56
[2018-11-13 16:50] VITALS: BP 94/56
[2018-11-13 20:15] VITALS: BP 94/64
[2018-11-13] MEDS: ATORVASTATIN 80 MG (LIPITOR) TABLET PO SCH (21:39)
[2018-11-14] MEDS ORDERED: NS (IVPB) 50 ML ONE (00:07)
[2018-11-14] MEDS: MEROPENEM 1,000 MG in WATER (STERILE) FOR INJECTION 20 ML IV SCH ×2 (00:18→08:13)
[2018-11-14 00:30] VITALS: BP 99/66
[2018-11-14 04:00] VITALS: BP 102/65
[2018-11-14] MEDS: CATHETER FLUSH 10 ML SYR IV SCH (05:21)
[2018-11-14 05:30] LABS: BASOPHILS % (AUTO) 0 % (0-10); EOSINOPHILS # (AUTO) 0.6 10^3/uL (0.0-0.3); EOSINOPHILS % (AUTO) 6 % (0-10); HEMATOCRIT 35 % (40-54); HEMOGLOBIN 11.9 G/DL (13.3-17.7); LYMPHOCYTES # (AUTO) 1.3 X 10^3 (1.0-4.0); LYMPHOCYTES % (AUTO) 13 % (12-44); MEAN CORPUSCULAR HEMOGLOBIN 28 PG (25-34); MEAN CORPUSCULAR HGB CONC 34 G/DL (32-36); MEAN CORPUSCULAR VOLUME 83 FL (80-99); MEAN PLATELET VOLUME 10.7 FL (7.4-10.4); MONOCYTES # (AUTO) 1.7 X 10^3 (0.0-1.0); MONOCYTES % (AUTO) 17 % (0-12); NEUTROPHILS # (AUTO) 6.5 X 10^3 (1.8-7.8); NEUTROPHILS % (AUTO) 64 % (42-75); PLATELET COUNT 282 10^3/uL (130-400); RED CELL DISTRIBUTION WIDTH 14.7 % (10.0-14.5); WHITE BLOOD COUNT 10.1 10^3/uL (4.3-11.0)
[2018-11-14 05:46] LABS: CALCIUM 8.7 MG/DL (8.5-10.1); MAGNESIUM 2.1 MG/DL (1.8-2.4); POTASSIUM 3.9 MMOL/L (3.6-5.0)
[2018-11-14] MEDS: FUROSEMIDE 20 MG (LASIX) TAB PO SCH (06:21)
[2018-11-14] MEDS: RT-ALBUTEROL/IPRATROPIUM 3 ML (DUONEB) VIAL INH SCH (07:22)
--- NOTE | 2018-11-14 08:02 | Pulmonary Progress Note ---
Subjective Time Seen by a Provider: 08:08 Subjective/Events-last exam PT feels improved. Hemoptysis almost completely resolved. Pt is a never smoker. Sepsis Event Evaluation Height, Weight, BMI Height: 5'8.00" Weight: 183lbs. 11.2oz. 83.411217rm; 26.5 BMI Method: Exam Exam Vital Signs Date Time Temp Pulse Resp B/P (MAP) Pulse Ox O2 Delivery O2 Flow Rate FiO2 11/14/18 07:22 94 Room Air 11/14/18 05:47 98.0 11/14/18 04:00 97.6 89 22 102/65 (77) 94 Room Air 11/14/18 01:00 104 11/14/18 00:30 98.3 101 20 99/66 (77) 94 Room Air 11/13/18 21:00 Room Air 11/13/18 20:15 98.5 97 18 94/64 (74) 97 Room Air 11/13/18 19:00 96 11/13/18 18:59 96 Room Air 11/13/18 16:50 98.4 88 16 94/56 (69) 95 Room Air 11/13/18 14:45 96 Room Air 11/13/18 12:48 85 11/13/18 12:00 97.9 97 18 76/55 (62) 92 Room Air 11/13/18 10:09 97 Room Air 11/13/18 08:15 Room Air 11/13/18 08:00 98.1 68 18 98/63 (75) 96 Room Air I & O 11/14/18 07:00 Intake Total 1070 ml Output Total 1630 ml Balance -560 ml Height & Weight Height: 5'8.00" Weight: 183lbs. 11.2oz. 83.624358hj; 26.5 BMI Method: General Appearance: No Apparent Distress, WD/WN Neck: Normal Inspection; No JVD Respiratory: No Accessory Muscle Use, No Respiratory Distress, Other (a few rales in right base chest clear otherwise.) Cardiovascular: Regular Rate, Rhythm, No Edema, Gallop/S3 Capillary Refill: Less Than 3 Seconds Gastrointestinal: normal bowel sounds, non tender, soft Extremity: Normal Inspection, No Pedal Edema Neurologic/Psychiatric: Alert, Oriented x3, Normal Mood/Affect Results Lab Laboratory Tests 11/13/18 05:05 11/13/18 05:15 11/14/18 05:08 Assessment/Plan Assessment/Plan CHFAE EF 10% -cardiology following -Plavix -Life vest Pneumonia-- Sputum cultures only show normal ant, BC are negative. L eukocytosis has improved, and no fevers -CXR reviewed -PT is on RA. He will need repeat CXR 6-8 wks after discharge to confirm resolution of infiltration. -I discussed this with pt and . They would like to f/u with PCP to follow CXR. they will let me know if any respiratory symptoms worsen. merrem. PT is allergic to PCN -- today is #7 of total Abx -Leukocytosis and fever have resolved -Ok to D/C Abx today -Oxygen and monitor -IS -Duoneb QID Hemoptysis - small amount most likely from coughing and antiplatelet therapy - improving -Pt is a never smoker -Continue to monitor -Hb is stable CAD with recent 6 stents placement at [place] -Cardiology following Probable ARASH -out pt testing Hyponatremia -Monitor Pt is ok for discharge from pulmonary standpoint. TONO LOMBARDO DO Nov 14, 2018 08:02
[2018-11-14 08:36] VITALS: BP 89/54
[2018-11-14] MEDS: SPIRONOLACTONE 25 MG (ALDACTONE) TAB PO SCH (08:40)
[2018-11-14] MEDS: BENZONATATE 100 MG (TESSALON) CAPSULE PO SCH (08:40)
[2018-11-14] MEDS: SACUBITRIL/VALSARTAN 24/26 MG (ENTRESTO) TABLET PO SCH (08:40)
[2018-11-14] MEDS: CARVEDILOL 3.125 MG (COREG) TABLET PO SCH (08:40)
[2018-11-14] MEDS: AMIODARONE 200 MG (CORDARONE) TAB PO SCH (08:40)
[2018-11-14] MEDS: TICAGRELOR 90 MG TABLET (BRILINTA) PO SCH (08:40)
[2018-11-14] MEDS: ASPIRIN 81 MG CHEW (CHILDREN'S ASA) PO SCH (08:41)
[2018-11-14] MEDS ORDERED: SPIR25TA5 PO (09:49)
[2018-11-14] MEDS ORDERED: FURO20TA4 PO (09:49)
--- NOTE | 2018-11-14 10:11 | Progress Note-Cardiology ---
Cardiology SOAP Progress Note Subjective: Sitting up in a recliner at the bedside. Life Vest in place. States he is ready to go home. No c/o CP, palpitations, syncope or near syncope. Breathing is much better today. Objective: I&O/Vital Signs 11/14/18 11/14/18 11/14/18 11/14/18 00:30 01:00 04:00 05:47 Temp 98.3 97.6 98.0 Pulse 101 104 89 Resp 20 22 B/P (MAP) 99/66 (77) 102/65 (77) Pulse Ox 94 94 O2 Delivery Room Air Room Air 11/14/18 11/14/18 11/14/18 11/14/18 07:00 07:22 08:00 08:36 Temp 97.3 Pulse 93 66 Resp 22 B/P (MAP) 89/54 (66) Pulse Ox 94 94 O2 Delivery Room Air Room Air Room Air O2 Flow Rate 0.00 11/14/18 00:00 Intake Total 900 ml Output Total 1380 ml Balance -480 ml Weight (Pounds): 183 Weight (Ounces): 11.2 Weight (Calculated Kilograms): 83.670775 Constitutional: AAO x 3, well-developed, well-nourished Respiratory: lungs clear to auscultation Cardiovascular: regular rate-rhythm, JVD, S1 and S2, systolic murmur (2/6 HSM at card apex) Gastrointestional: No tender; soft, round, audible bowel sounds Extremities: no lower extremity edema bilateral Neurologic/Psychiatric: grossly intact, power is 5/5 both on sides Skin: No rash on exposed areas, No ulcerations on exposed areas Results/Procedures: Labs Laboratory Tests 11/14/18 05:08: White Blood Count 10.1, Red Blood Count 4.25L, Hemoglobin 11.9L, Hematocrit 35L, Mean Corpuscular Volume 83, Mean Corpuscular Hemoglobin 28, Mean Corpuscular Hemoglobin Concent 34, Red Cell Distribution Width 14.7H, Platelet Count 282, Mean Platelet Volume 10.7H, Neutrophils (%) (Auto) 64, Lymphocytes (%) (Auto) 13, Monocytes (%) (Auto) 17H, Eosinophils (%) (Auto) 6, Basophils (%) (Auto) 0, Neutrophils # (Auto) 6.5, Lymphocytes # (Auto) 1.3, Monocytes # (Auto) 1.7H, Eosinophils # (Auto) 0.6H, Basophils # (Auto) 0.0, Sodium Level 130L, Potassium Level 3.9, Chloride Level 98, Carbon Dioxide Level 20L, Anion Gap 12, Blood Urea Nitrogen 34H, Creatinine 2.00H, Estimat Glomerular Filtration Rate 35, BUN/Creatinine Ratio 17, Glucose Level 104, Calcium Level 8.7, Phosphorus Level 3.2, Magnesium Level 2.1 Microbiology 11/08/18 Blood Culture - Final, Complete No growth 11/08/18 Gram Stain - Final, Complete 11/08/18 Sputum Culture - Final, Complete Usual upper respiratory ant 11/08/18 Urine Culture - Final, Complete NO GROWTH Laboratory Tests 11/13/18 05:05 11/13/18 05:15 11/14/18 05:08 A/P: Assessment: Pneumonia and mild hemoptysis, managed by the Hospitalist Service Acute on chronic systolic CHF due to ischemic cardiomyopathy - clinically improved CAD - cardiac cath at [facility] on - per stent cards - s/p Promus premier 2.75 x 16 mm stent to the LAD; Synergy 3.00 x 8 mm stent to circ; Synergy 3.00 x 16 mm stent to the P. circ; Synergy 2.50 x 32 mm stent to RCA, Promus Premier 2.00 x 38 mm stent to RCA and another Promus Premier 3.00 mm x 38 mm stent to the RCA - stenting done by Dr. Odonnell at [facility] ICM - LVEF 10-15% on echo of October 04, 2018. Echo of 11/04/18: LVEF 10%, no significant pericard eff, mod cardiomegaly, mod to sev MR, mod TR, RVSP 25 mmHg Frequent PVCs, isolated and coupled ?ARASH ( has noted some signs of ARASH) Hyponatremia: SIADH (due to pneumonia) vs spironolactone therapy Family h/o CAD - father PA in his late 50's Plan: * Complex management * Cardiac status clinically improved * Continue DAPT, given multiple cor stents recently at [facility] * OK to discharge home on current medication regimen * He has f/u with Dr. Colon on November 22, 2018. Advised he keep that f/u appt * Advised compliance with FRANCIS Cabrera Nov 14, 2018 10:11
--- NOTE | 2018-11-14 11:07 | Discharge Summary-Hospitalist ---
Diagnosis/Chief Complaint Date of Admission Nov 04, 2018 at 04:20 Date of Discharge Discharge Date: Nov 14, 2018 Admission Diagnosis Acutely decompensated systolic heart failure Discharge Diagnosis (1) Cardiomyopathy Status: Chronic (2) CHF (congestive heart failure) Status: Acute (3) Pneumonia Status: Acute (4) CAD (coronary artery disease), [place] coronary artery Status: Chronic Discharge Summary Procedures/Consulations Dr Clarke- Cardiology Dr Ramirez- Pulmonology Discharge Physical Exam Allergies: Coded Allergies: Penicillins (Verified Allergy, Unknown, 11/04/18) Vitals & I&Os General Appearance: No Apparent Distress, WD/WN Respiratory: Lungs Clear, No Respiratory Distress Cardiovascular: Regular Rate, Rhythm, No Murmur Neurologic/Psychiatric: Alert, Oriented x3 Hospital Course Pt was admitted due to acutely decompensated heart failure. He has just been released from [facility] in May following 6 stents being placed. Upon a rrival home despite compliance with fluid restriction and medications he had worsening shortness of breath and returned to the ER for evaluation. He was found to have acutely decompensated heart failure and was admitted for diuresis. His case was very complex due to relative hypotension on appropriate heart failure medications and hyponatremia once he became euvolemic and thus nece ssitated IVF for hyponatremia. He also developed pneumonia during this admission and was treated for HCAP given recent hospitalization at [employer]. Ultimately his symptoms improved and he was stable all oral medications. A life vest was arranged for discharge due to his profound cardiomyopathy. He is to follow up with Dr Pablo as scheduled and with his PCP. I did called and speak with his PCP [employer] Carie Renteria to update her on this hospitalization. Labs (last 24 hrs) Microbiology 11/08/18 Blood Culture - Final, Complete No growth 11/08/18 Gram Stain - Final, Complete 11/08/18 Sputum Culture - Final, Complete Usual upper respiratory ant 11/08/18 Urine Culture - Final, Complete NO GROWTH Patient resulted labs reviewed. Pending Labs Imaging: Reviewed Imaging Report Discussion & Recommendations Discharge Planning: >30 minutes discharge planning Discharge Home Medications: Active Scripts Active Furosemide 20 Mg Tablet 20 Mg PO DAILY@0700 Spironolactone 25 Mg Tablet 25 Mg PO Q48H Aspirin 81 Mg Tab.chew 81 Mg PO DAILY Entresto 24 mg-26 mg Tablet (Sacubitril/Valsartan) 1 Each Tablet 1 Tab PO BID Carvedilol 3.125 Mg Tablet 3.125 Mg PO BID Amiodarone HCl 200 Mg Tablet 400 Mg PO DAILY Reported Lipitor (Atorvastatin Calcium) 80 Mg Tablet 80 Mg PO HS Brilinta (Ticagrelor) 90 Mg Tablet 90 Mg PO BID Instructions to patient/family Please see electronic discharge instructions given to patient. Clinical Quality Measures DVT/VTE Risk/Contraindication: Risk Factor Score Per Nursin RFS Level Per Nursing on Admit: 4+=Very High Copy Copies To 1: Clarice Renteria; SID PABLO Problem Qualifiers (1) Cardiomyopathy: Cardiomyopathy type: unspecified Qualified Codes: I42.9 - Cardiomyopathy, unspecified (2) CHF (congestive heart failure): Heart failure type: systolic Heart failure chronicity: acute on chronic Qualified Codes: I50.23 - Acute on chronic systolic (congestive) heart failure (3) Pneumonia: Pneumonia type: due to unspecified organism Laterality: unspecified laterality Lung location: unspecified part of lung Qualified Codes: J18.9 - Pneumonia, unspecified organism (4) CAD (coronary artery disease), [place] coronary artery: [place] vs. transplanted heart: [place] heart Associated angina: without angina Qualified Codes: I25.10 - Atherosclerotic heart disease of [place] coronary artery without angina pectoris FELIX ESCALERA MD Nov 14, 2018 11:07
--- NOTE | 2018-11-14 11:28 | Discharge Inst-Simple/Standard ---
Discharge Inst-Standard Discharge Medications New, Converted or Re-Newed RX: Transmitted to Pharmacy Patient Instructions/Follow Up Plan of Care/Instructions/FU: Please continue to take your medications as written. Please follow up with your PCP to follow up this hospital stay and with Dr Colon on 11/22. Activity as Tolerated: Yes Discharge Diet: Low Sodium Diet (2L fluid restriction) Return to The Hospital For: Chest pain, shortness of breath, weight gain of more than 3lbs, if you feel you are getting worse. Planned Outpatient Orders/Ref. Pneu Vac Indicated: Yes FELIX ESCALERA MD Nov 14, 2018 11:27
--- NOTE | 2018-11-18 08:40 | Physician Query Clarification ---
PQ-Uncertain Diagnosis Admission/Discharge Admission Date: Nov 04, 2018 at 04:20 Discharge Date: Nov 14, 2018 at 12:00 The medical record reflects the following clinical scenario: History/Risk Factors: Pneumonia Hemoptysis Clinical Findings:Chest xray 11/13/18-Persistent right basilar infiltrate compatible with pneumonia. Given the peripheral location, possibility of pulmonary infarct is not excluded. Treatment: Brilinta 90 mg. Question: Is pulmonary infarction a clinically valid diagnosis? Pulmonary infarction was in the differential diagnosis documented in the 11/[address] Emery with no further documentation in the medical record. Please document a response in Progress Note or Discharge Summary. 1. Yes, clinically valid, condition resolved. 2. No, condition ruled out. 3. Other, with explanation of clinical findings. 4. Undetermined, no explanation for clinical findings. PHYSICIAN RESPONSE Diagnosis clinically valid: No, conditon ruled out Please remember a lack of response to the above will prompt a phone page by CDI/Coding staff. In responding to this query, please exercise your independent professional judgment. The purpose of this communication is to more accurately reflect the complexity of your patients condition. The fact that a question is asked does not imply that any particular answer is desired or expected. Thank you for your timely response to this clarification. Requestors name: Constance Lazcano [facility] Phone # ext [phone] or [phone] THIS PHYSICIAN QUERY FORM IS A PERMANENT PART OF THE MEDICAL RECORD [employer]STANCE [place] Nov 18, 2018 08:40 FELIX ESCALERA MD Nov 18, 2018 12:37
--- NOTE | 2018-11-18 08:50 | Physician Query Clarification ---
PQ-Uncertain Diagnosis Admission/Discharge Admission Date: Nov 04, 2018 at 04:20 Discharge Date: Nov 14, 2018 at 12:00 The medical record reflects the following clinical scenario: History/Risk Factors: Pneumonia Hemoptysis Clinical Findings: T 98.7, pulse 74, Resp 20, BP 90/55, WBC 13.5, Lactic acid 0.80. Blood cultures- no growth. Treatment:IV Cefepime HCI Question: Is Sepsis a clinically valid diagnosis? Pneumonia with sepsis was documented in the 11/[address] Ramirez with no further documentation in the medical record. Please document a response in Progress Note or Discharge Summary. 1. Yes, clinically valid, condition resolved. 2. No, condition ruled out. 3. Other, with explanation of clinical findings. 4. Undetermined, no explanation for clinical findings. PHYSICIAN RESPONSE Diagnosis clinically valid: Yes, Conditon resolved Please remember a lack of response to the above will prompt a phone page by CDI/Coding staff. In responding to this query, please exercise your independent professional judgment. The purpose of this communication is to more accurately reflect the complexity of your patients condition. The fact that a question is asked does not imply that any particular answer is desired or expected. Thank you for your timely response to this clarification. Requestors name: Constance Lazcano [facility] Phone # ext [phone] ir [phone] THIS PHYSICIAN QUERY FORM IS A PERMANENT PART OF THE MEDICAL RECORD [employer]STANCE [place] Nov 18, 2018 08:50 FELIX ESCALERA MD Nov 18, 2018 12:38
== END 2018-11-14 12:00 | disposition home or self-care (01) | DRG 291 ==
LOC: ICU 04:20 → 4TH 11-07 10:46 → UNDODISIN 11-09 15:56 → 4TH 11-10 14:04
PROVIDERS: ADMIT Internal Medicine; ATTEND Family Medicine
DX: I50.23 Acute on chronic systolic (congestive) heart failure (principal); I25.5 Ischemic cardiomyopathy; A41.9 Sepsis, unspecified organism; J18.9 Pneumonia, unspecified organism; J98.11 Atelectasis; I42.0 Dilated cardiomyopathy; E87.2 Acidosis; E87.1 Hypo-osmolality and hyponatremia; R04.2 Hemoptysis; E22.2 Syndrome of inappropriate secretion of antidiuretic hormone; I25.10 Atherosclerotic heart disease of native coronary artery without angina pectoris; I10 Essential (primary) hypertension; G47.33 Obstructive sleep apnea (adult) (pediatric); R79.89 Other specified abnormal findings of blood chemistry; R74.0 Nonspecific elevation of levels of transaminase and lactic acid dehydrogenase [LDH]; N28.9 Disorder of kidney and ureter, unspecified; I95.2 Hypotension due to drugs; I95.89 Other hypotension; E87.6 Hypokalemia; I08.1 Rheumatic disorders of both mitral and tricuspid valves; I49.3 Ventricular premature depolarization; T50.0X5A Adverse effect of mineralocorticoids and their antagonists, initial encounter; T45.8X5A Adverse effect of other primarily systemic and hematological agents, initial encounter; Z95.5 Presence of coronary angioplasty implant and graft; Z87.891 Personal history of nicotine dependence
CPT/HCPCS: 36415; 71045; 71046; 80048; 80053; 81000; 83605; 83735; 84100; 84484; 85007; 85025; 85027; 85610; 87040; 87070; 87081; 87088; 87205; 93005; 93306; 94640; 94664; 94760